=== PATIENT | female | born 1960 | race Hispanic/Latino ===

== ENCOUNTER 2018-04-15 14:07 | Emergency (ER) | payer OTHER ==
[2018-04-15] MEDS ORDERED: HYDROCODONE/APAP 10/325 TAB ONE (16:04)
--- NOTE | 2018-04-15 16:22 | ER ---
Nurse's Notes [facility] Name: Tamara Lazar Age: 57 yrs Sex: Female : 1960 Arrival Date: 04/15/2018 Time: 14:10 Bed 9 Private MD: Lincoln Durham R Diagnosis: Pain in left knee;Contusion of left knee Presentation: 04/15 14:35 Presenting complaint: Patient states: fell today onto her left knee. Care prior to sv arrival: None. 14:35 Acuity: LATISHA 4 sv 14:35 Method Of Arrival: Wheelchair sv 14:36 Transition of care: patient was not received from another setting of care. Onset of sv symptoms was April 15, 2018. 15:32 Risk Assessment: Do you want to hurt yourself or someone else? Patient reports no aa5 desire to harm self or others. Initial Sepsis Screen: Does the patient meet any 2 criteria? No. Patient's initial sepsis screen is negative. Does the patient have a suspected source of infection? No. Patient's initial sepsis screen is negative. Historical: - Allergies: 14:36 No Known Allergies; sv - PMHx: 14:36 Anxiety; CHF; COPD; Depression; Diabetes - NIDDM; Hypertension; Sleep Apnea; sv - PSHx: 14:36 Gastric Bypass; D \T\ C; sv - Ebola Screening: : No symptoms or risks identified at this time. Screenin:32 Abuse screen: Denies threats or abuse. Nutritional screening: No deficits noted. aa5 Tuberculosis screening: No symptoms or risk factors identified. Fall Risk Fall in past 12 months (25 points). Assessment: 15:32 General: Appears uncomfortable, Behavior is calm, cooperative. Pain: Complains of pain aa5 in left knee Pain currently is 8 out of 10 on a pain scale. Aggravated by increased activity, weight bearing. Neuro: Level of Consciousness is awake, alert, obeys commands, Oriented to person, place, time, situation. Cardiovascular: No deficits noted. Respiratory: Airway is patent Respiratory effort is even, unlabored, Respiratory pattern is regular, symmetrical. GI: No signs and/or symptoms were reported involving the gastrointestinal system. : No signs and/or symptoms were reported regarding the genitourinary system. EENT: No signs and/or symptoms were reported regarding the EENT system. Derm: Skin is pink, warm \T\ dry. Musculoskeletal: Range of motion: limited in left knee. 16:50 Reassessment: Knee immobilizer applied to left knee . aa5 Vital Signs: 14:36 BP 104 / 71; Pulse 62; Resp 20; Temp 98; Pulse Ox 100% ; Weight 113.4 kg; Height 5 ft. sv 4 in. (162.56 cm); Pain 8/10; 14:36 Body Mass Index 42.91 (113.40 kg, 162.56 cm) sv ED Course: 14:10 Patient arrived in ED. rg4 14:10 Lincoln Durham MD is Private Physician. rg4 14:36 Triage completed. sv 14:37 Arm band placed on. sv 15:30 Edward Donaldson NP is PHCP. pm1 15:30 Pedro Giang MD is Attending Physician. pm1 15:31 Knee Left 3 View XRAY In Process Unspecified. EDMS 15:32 Patient has correct armband on for positive identification. Placed in gown. Bed in low aa5 position. Call light in reach. Side rails up X 1. 15:36 Deborah Granda, RN is Primary Nurse. aa5 16:50 No provider procedures requiring assistance completed. Patient did not have IV access aa5 during this emergency room visit. Administered Medications: 15:55 Drug: [place] 10 mg-325 mg 1 tabs Route: PO; aa5 16:50 Follow up: Response: No adverse reaction; Pain is decreased aa5 Outcome: 16:22 Discharge ordered by MD. pm1 16:49 Discharged to home ambulatory, via wheelchair, with crutches, with family. aa5 16:49 Condition: stable 16:49 Discharge instructions given to patient, Instructed on discharge instructions, follow up and referral plans. Demonstrated understanding of instructions, follow-up care. 16:50 Patient left the ED. aa5 Signatures: Dispatcher [employer] Patricia Whitaker RN RN Deborah Gradna RN RN aa5 Edward Donaldson NP GEOCHEM[employer] LABORATORY TECHNICIAN pm1 Harriet Lund rg4
--- NOTE | 2018-04-15 16:22 | EDPHYS ---
Physician Documentation [facility] Name: Tamara Lazar Age: 57 yrs Sex: Female : 1960 Arrival Date: 04/15/2018 Time: 14:10 Bed 9 Private MD: Lincoln Durham R ED Physician Pedro Giang HPI: 04/15 16:00 This 57 yrs old Female presents to ER via Wheelchair with complaints of Fall pm1 Injury. 16:00 Details of fall: The patient fell from an upright position, while walking, and struck a pm1 concrete surface. Onset: The symptoms/episode began/occurred today. Associated injuries: The patient sustained left knee. Severity of symptoms: in the emergency department the symptoms are unchanged. The patient has not experienced similar symptoms in the past. The patient has not recently seen a physician. Patient was walking and fell on her left knee. Patient without head injury, headache, neck pain, or LOC. Historical: - Allergies: 14:36 No Known Allergies; sv - PMHx: 14:36 Anxiety; CHF; COPD; Depression; Diabetes - NIDDM; Hypertension; Sleep Apnea; sv - PSHx: 14:36 Gastric Bypass; D \T\ C; sv - Ebola Screening: : No symptoms or risks identified at this time. ROS: 16:00 Constitutional: Negative for fever, chills, and weight loss, Eyes: Negative for injury, pm1 pain, redness, and discharge, ENT: Negative for injury, pain, and discharge, Neck: Negative for injury, pain, and swelling, Cardiovascular: Negative for chest pain, palpitations, and edema, Respiratory: Negative for shortness of breath, cough, wheezing, and pleuritic chest pain, Abdomen/GI: Negative for abdominal pain, nausea, vomiting, diarrhea, and constipation, Back: Negative for injury and pain, : Negative for injury, bleeding, discharge, and swelling. 16:00 Skin: Negative for injury, rash, and discoloration, Neuro: Negative for headache, weakness, numbness, tingling, and seizure. 16:00 MS/extremity: Positive for pain, swelling, of the left knee, Negative for decreased range of motion, deformity, paresthesias, tingling. Exam: 16:00 Constitutional: This is a well developed, well nourished patient who is awake, alert, pm1 and in no acute distress. Head/Face: Normocephalic, atraumatic. Eyes: Pupils equal round and reactive to light, extra-ocular motions intact. Lids and lashes normal. Conjunctiva and sclera are non-icteric and not injected. Cornea within normal limits. Periorbital areas with no swelling, redness, or edema. ENT: Nares patent. No nasal discharge, no septal abnormalities noted. Tympanic membranes are normal and external auditory canals are clear. Oropharynx with no redness, swelling, or masses, exudates, or evidence of obstruction, uvula midline. Mucous membranes moist. Neck: Trachea midline, no thyromegaly or masses palpated, and no cervical lymphadenopathy. Supple, full range of motion without nuchal rigidity, or vertebral point tenderness. No Meningismus. Chest/axilla: Normal chest wall appearance and motion. Nontender with no deformity. No lesions are appreciated. Cardiovascular: Regular rate and rhythm with a normal S1 and S2. No gallops, murmurs, or rubs. Normal PMI, no JVD. No pulse deficits. Respiratory: Lungs have equal breath sounds bilaterally, clear to auscultation and percussion. No rales, rhonchi or wheezes noted. No increased work of breathing, no retractions or nasal flaring. Abdomen/GI: Soft, non-tender, with normal bowel sounds. No distension or tympany. No guarding or rebound. No evidence of tenderness throughout. Back: No spinal tenderness. No costovertebral tenderness. Full range of motion. Skin: Warm, dry with normal turgor. Normal color with no rashes, no lesions, and no evidence of cellulitis. 16:00 Musculoskeletal/extremity: Extremities: grossly normal except: noted in the left knee: pain, swelling, There is no evidence of decreased ROM. 16:00 Neuro: Orientation: is normal, Motor: is normal, moves all fours. Vital Signs: 14:36 BP 104 / 71; Pulse 62; Resp 20; Temp 98; Pulse Ox 100% ; Weight 113.4 kg; Height 5 ft. sv 4 in. (162.56 cm); Pain 8/10; 14:36 Body Mass Index 42.91 (113.40 kg, 162.56 cm) sv Procedures: 16:00 Splinting: Splint applied to left knee using knee immobilizer, applied by nurse. pm1 Examined by me, post splint application: neurovascular intact, 2+ distal pulses palpable, brisk capillary refill noted, Patient tolerated well. MDM: 15:30 Patient medically screened. pm1 16:19 Data reviewed: vital signs. Data interpreted: Pulse oximetry: on room air is 100 %. pm1 Interpretation: normal. Awaiting: X-ray results, Radiologist interpretation. Patient does not want to wait for official read. 16:19 Counseling: I had a detailed discussion with the patient and/or guardian regarding: the pm1 historical points, exam findings, and any diagnostic results supporting the discharge/admit diagnosis, radiology results, the need for outpatient follow up, to return to the emergency department if symptoms worsen or persist or if there are any questions or concerns that arise at home. 04/15 14:37 Order name: Knee Left 3 View XRAY; Complete Time: 20:22 sv 04/15 15:44 Order name: Knee Immobilizer; Complete Time: 16:50 pm1 04/15 15:44 Order name: Crutches; Complete Time: 16:50 pm1 Administered Medications: 15:55 Drug: [facility] 10 mg-325 mg 1 tabs Route: PO; aa5 16:50 Follow up: Response: No adverse reaction; Pain is decreased aa5 Disposition: 04/15/18 16:22 Discharged to Home. Impression: Pain in left knee, Contusion of left knee. - Condition is Stable. - Discharge Instructions: Contusion, Crutch Use, Knee Immobilizer, Knee Pain. - Medication Reconciliation Form, Thank You Letter, Antibiotic Education, Prescription Opioid Use form. - Follow up: Emergency Department; When: As needed; Reason: Worsening of condition. Follow up: Private Physician; When: 2 - 3 days; Reason: Recheck today's complaints, Continuance of care, Re-evaluation by your physician. - Problem is new. - Symptoms have improved. Addendum: 04/18/2018 05:34 Co-signature as Attending Physician, Pedro Giang MD I agree with the assessment and c julien plan of care. Signatures: Dispatcher [employer] Patricia Whitaker RN RN sv Anderson, Corey, MD MD cha Calderon, Audri, RN RN aa5 Edward Donaldson NP [employer] SUPERVISOR pm1 Corrections: (The following items were deleted from the chart) 04/15 16:50 16:22 04/15/2018 16:22 Discharged to Home. Impression: Pain in left knee; Contusion of aa5 left knee. Condition is Stable. Forms are Medication Reconciliation Form, Thank You Letter, Antibiotic Education, Prescription Opioid Use. Follow up: Emergency Department; When: As needed; Reason: Worsening of condition. Follow up: Private Physician; When: 2 - 3 days; Reason: Recheck today's complaints, Continuance of care, Re-evaluation by your physician. Problem is new. Symptoms have improved. pm1
--- NOTE | 2018-04-15 17:19 | RAD REPORT ---
EXAM DESCRIPTION: RAD - Knee Left 3 View - 04/15/2018 3:29 pm CLINICAL HISTORY: Left knee pain status post injury FINDINGS: A small to moderate joint effusion is present. The evaluation of the medial tibial plateau is limited as the knee was not completely extended on fro ntal and oblique views. No gross fracture or dislocation seen. Bones are osteoporotic. If patient continues have symptoms to suggest an occult fracture MRI would be recommended
[2018-04-15 17:22] VITALS: BP 104/71; TEMP 98; O2SAT 100
== END 2018-04-15 16:50 | disposition home or self-care (01) ==
LOC: ER 14:07
DX: S80.02XA Contusion of left knee, initial encounter (principal); W01.0XXA Fall on same level from slipping, tripping and stumbling without subsequent striking against object, initial encounter; Y93.01 Activity, walking, marching and hiking; F41.9 Anxiety disorder, unspecified; I11.0 Hypertensive heart disease with heart failure; I50.9 Heart failure, unspecified; J44.9 Chronic obstructive pulmonary disease, unspecified; F32.9 Major depressive disorder, single episode, unspecified; E11.9 Type 2 diabetes mellitus without complications
CPT/HCPCS: 99283

== ENCOUNTER 2018-05-12 09:14 | Observation (INO) | payer OTHER ==
--- OUTSIDE RECORDS SUMMARY | 2018-05-12 09:17 | XMS REPORT ---
:1960 Author Organization [employer] Care Team Providers Name Role Phone Lebron Grayson Provider Role Unavailable Allergies, Adverse Reactions, Alerts Substance Reaction Event Type N.K.D.A. Info Not Available Non Drug Allergy Problems Problem Type Condition Code Onset Dates Condition Status Assessment Primary osteoarthritis of knees, M17.0 Active bilateral Assessment Contusion of left knee, initial S80.02XA Active encounter Assessment Morbid (severe) obesity due to E66.01 Active excess calories Problem Morbid (severe) obesity due to E66.01 Active excess calories Problem Pedal edema R60.0 Active Problem Primary osteoarthritis of knees, M17.0 Active bilateral Assessment Pain, joint, knee, left M25.562 Active Problem Primary osteoarthritis of left M17.12 Active knee Problem Primary osteoarthritis of right M17.11 Active knee Medications Medication Code System Code Instructions Start End Date Status Dosage Date Metformin HCl [facility] 74207-401 Active not defined 8-01 Furosemide ND 0 Active not defined Lisinopril [facility] 84954-300 Active not defined 1-01 Acetaminophen-Cod [facility] 76840-073 Active not defined eine #4 0-01 Citalopram [facility] 94173-937 Active not defined Hydrobromide 1-01 Glimepiride [facility] 86890-641 Active not defined 6-01 Results No Known Results Summary Purpose [employer] Submission
[2018-05-12] MEDS ORDERED: GLUCAGON 1 MG/VIAL IM PRN (10:14)
[2018-05-12] MEDS ORDERED: PROMETHAZINE 25 MG/ML VIAL IV PRN (10:14)
[2018-05-12] MEDS ORDERED: D50W 25 GM/50 ML SYRINGE IV PRN (10:14)
[2018-05-12 10:40] LABS: Urine Appearance CLEAR; Urine Bilirubin NEGATIVE (NEG); Urine Blood 3+ (NEG); Urine Color DK YELLOW; Urine Glucose NEGATIVE (NEG); Urine Protein TRACE (NEG); Urine Specific Gravity 1.025 (1.005-1.030); Urine Urobilinogen 0.2 mg/dL (0.2-1.0); Urine pH 5.5 (5.0-7.0)
[2018-05-12 10:40] LABS: Absolute Monocytes 0.7 K/uL (0.1-1.3); Absolute Neutrophil 10.3 K/uL (1.8-8.0); Basophils % 0.3 % (0-1.3); Eosinophils % 0.3 % (0-4.4); Hematocrit 44.4 % (36.0-45.0); MPV 8.4 fL (7.6-11.3); Monocytes % 5.9 % (3.3-12.3)
[2018-05-12 10:46] LABS: Albumin 3.1 g/dL (3.4-5.0); Bilirubin Total 0.6 mg/dL (0.2-1.0); Potassium 3.5 mmol/L (3.5-5.1); Protein, Total 7.2 g/dL (6.4-8.2)
[2018-05-12 11:07] LABS: Urine Microscopic Reflex ORDER UMIC
[2018-05-12 11:09] VITALS: BMI 43.0
[2018-05-12 11:18] LABS: Urine Bacteria 20-50 /HPF (<20); Urine Culture Reflex Order NOT NEEDED; Urine Mucus MOD /HPF (NONE SEEN); Urine RBC <5 /HPF (NONE SEEN)
[2018-05-12] MEDS: NACHLORIDE 0.45% 1,000 ML IV SCH ×3 (11:23→20:17)
[2018-05-12] MEDS: INSULIN -REGULAR HUMAN 50 UNIT/0.5 ML ML SQ SCH ×2 (12:00→17:15)
[2018-05-12 12:04] LABS: Platelet Estimate ADEQ
[2018-05-12 12:05] LABS: Blood Morphology Comment NOT SEEN (NOT SEEN); Platelets, Giant FEW
--- NOTE | 2018-05-12 14:13 | RAD REPORT ---
EXAM DESCRIPTION: CT - Abdomen Pelvis W Contrast - 05/12/2018 1:59 pm CLINICAL HISTORY: Abdominal pain. COMPARISON: 2014 TECHNIQUE: Computed axial tomography of the abdomen and pelvis was obtained. 100 cc Isovue-300 is ad ministered intravenously. Oral contrast was given. All CT scans are performed using dose optimization technique as appropriate and may include automated exposure control or mA/KV adjustment according to patient size. FINDINGS: Hepatic hemangioma is unchanged. Postsurgical changes of a gastric bypass The Spleen, pancreas, adrenals and kidneys appear unremarkable. The appendix is normal caliber. There is no evidence of diverticulitis The wall of portions of the rectosigmoid colon and cecum appear mildly thickened. IMPRESSION: Mild colitis suspected
[2018-05-12] MEDS ORDERED: MORPHINE 4 MG/ML SYR IV PRN (15:51)
[2018-05-12] MEDS: METRONIDAZOLE 500mg IVPB 500 MG/100 ML BAG IV SCH (17:50)
[2018-05-12] MEDS: CIPROFLOXACIN 400mg IV 400 MG/200 ML BAG IV SCH (20:16)
[2018-05-13] MEDS: NACHLORIDE 0.45% 1,000 ML IV SCH ×5 (00:20→21:50)
[2018-05-13] MEDS: METRONIDAZOLE 500mg IVPB 500 MG/100 ML BAG IV SCH ×4 (01:38→18:59)
[2018-05-13] MEDS: INSULIN -REGULAR HUMAN 50 UNIT/0.5 ML ML SQ SCH ×4 (06:00→18:00)
[2018-05-13] MEDS: CITALOPRAM 10 MG TABLET PO SCH (10:31)
[2018-05-13] MEDS: CIPROFLOXACIN 400mg IV 400 MG/200 ML BAG IV SCH ×2 (10:33→21:50)
--- NOTE | 2018-05-13 13:59 | HP ---
Date of Admission: 05/12/2018 Chief Complaint: Fever, diarrhea, abdominal pain, vomiting. History Of Present Illness: A 57-year-old female was brought to the office with 3-4 day history of f ever, abdominal pain, nausea, vomiting, and diarrhea. The patient was examined in the office. She w as febrile with [id number] pain. It was not clear whether she had infective gastroenteritis or other abdominal pathology. The patient was admitted for observation. The patient denied any history of having any blood in the stools. The patient denied any history of vomiting up blood. No history of syncope or seizures. Past Medical History: Positive for hypertension, COPD, history of congestive heart failure, depressi on and anxiety. Past Surgical History: Positive for gastric bypass, tummy tuck, abdominal lipoplasty. Family History: Noncontributory. Personal History: No known drug allergies. Home Medicines: Please refer to the chart. Review of Systems: The patient denied any history of chest pain or shortness of breath. Physical Examination: General: Revealed a 57-year-old female in moderate pain. Vital Signs: Temperature 100.5 in the office. HEENT: No icterus. Neck: Supple. JVD negative. Chest: Clear. Heart: Mild tachycardia. Abdomen: Diffusely tender. Bowel sounds present. Extremities: No edema. Laboratory Data: White count 12. Chem profile; normal lipase, lactic acid, and glucose. Assessment: 1.Abdominal pain. 2.Gastroenteritis. 3.History of chronic obstructive pulmonary disease and congestive heart failure. 4.History of anxiety and depression. 5.History of gastric bypass surgery. Plan: IV fluids. Stool cultures as done. CAT scan did not show any evidence of obstruction, instea d showed colitis. The patient is started on IV antibiotics, and she will be followed up. STEPHANIE/ROGERS Voice ID: [id number]
[2018-05-13] MEDS ORDERED: ACETAMINOPHEN 500 MG TAB PO PRN (15:48)
[2018-05-14] MEDS: METRONIDAZOLE 500mg IVPB 500 MG/100 ML BAG IV SCH ×4 (00:51→17:49)
[2018-05-14] MEDS: INSULIN -REGULAR HUMAN 50 UNIT/0.5 ML ML SQ SCH ×4 (06:00→18:00)
[2018-05-14] MEDS: CITALOPRAM 10 MG TABLET PO SCH (09:05)
[2018-05-14] MEDS: CIPROFLOXACIN 400mg IV 400 MG/200 ML BAG IV SCH (09:05)
[2018-05-14 09:59] VITALS: O2SAT 96
[2018-05-14] MEDS ORDERED: SUCRALFATE 1 GM TABLET PO SCH (16:30)
[2018-05-14] MEDS: NACHLORIDE 0.45% 1,000 ML IV SCH (17:00)
--- NOTE | 2018-05-14 17:18 | PN ---
The patient is afebrile and she is feeling better, but her diarrhea still continues. There is no blo od in the stools. Stool cultures are negative for Salmonella, Campylobacter as well as C. difficile toxin, so very likely the patient has nonspecific colitis. The patient in view of her continued diar carmelita will be given supplemental IV fluids along with control of diet and she will be re-examined prachi martinez. STEPHANIE/ENDERL Voice ID: [id number] Report ID: [id number]
[2018-05-14 19:05] VITALS: BP 135/86; TEMP 99.6
== END 2018-05-14 20:10 | disposition home or self-care (01) ==
LOC: ERHOLD 09:14 → 4TH 09:27
PROVIDERS: ADMIT Internal Medicine; ATTEND Internal Medicine
DX: K52.9 Noninfective gastroenteritis and colitis, unspecified (principal); I10 Essential (primary) hypertension; F41.8 Other specified anxiety disorders; Z98.84 Bariatric surgery status; J44.9 Chronic obstructive pulmonary disease, unspecified
CPT/HCPCS: 87088; 87045; 85025; 87086; 36415; 82962 ×10; 87046; 83605; 87493; 83690; 80053; 74177; Q9967; J0744 ×4; G0379; G0378; 81003; 81015

== ENCOUNTER 2018-07-05 16:19 | Observation (INO) | payer OTHER ==
--- OUTSIDE RECORDS SUMMARY | 2018-07-05 17:02 | XMS REPORT ---
:1960 Author Organization [employer] Care Team Providers Name Role Phone Lebron Grayson Provider Role Unavailable Allergies, Adverse Reactions, Alerts Substance Reaction Event Type N.K.D.A. Info Not Available Non Drug Allergy Problems Problem Type Condition Code Onset Dates Condition Status Assessment Primary osteoarthritis of right M17.11 Active knee Assessment Primary osteoarthritis of left knee M17.12 Active Problem Primary osteoarthritis of knees, M17.0 Active bilateral Problem Morbid (severe) obesity due to E66.01 Active excess calories Problem Pain, joint, knee, left M25.562 Active Problem Primary osteoarthritis of right M17.11 Active knee Problem Pedal edema R60.0 Active Problem Primary osteoarthritis of left knee M17.12 Active Medications Medication Code System Code Instructions Start End Date Status Dosage Date Citalopram [facility] 81885-433 Active not defined Hydrobromide 1-01 Metformin HCl [facility] 07090-261 Active not defined 8-01 Acetaminophen-Cod [facility] 24826-266 Active not defined eine #4 0-01 Lisinopril [facility] 81702-778 Active not defined 1-01 Furosemide ND 0 Active not defined Glimepiride [facility] 77957-880 Active not defined 6-01 Results No Known Results Summary Purpose [employer] Submission
--- OUTSIDE RECORDS SUMMARY | 2018-07-05 17:02 | XMS REPORT ---
:1960 [facility] Address [address] [place] [address] Care Team Providers Name Role Phone Unavailable Unavailable Unavailable Problems This patient has no known problems. Allergies, Adverse Reactions, Alerts This patient has no known allergies or adverse reactions. Medications This patient has no known medications.
--- OUTSIDE RECORDS SUMMARY | 2018-07-05 17:02 | XMS REPORT ---
[...] End Date Status Dosage Date Metformin HCl [facility] 64841-314 Active not defined 8-01 Furosemide ND 0 Active not defined Lisinopril [facility] 06105-667 Active not defined 1-01 Acetaminophen-Cod [facility] 66815-183 Active not defined eine #4 0-01 Citalopram [facility] 96213-535 Active not defined Hydrobromide 1-01 Glimepiride [facility] 26697-448 Active not defined 6-01 Results No Known Results Summary Purpose [employer] Submission
--- OUTSIDE RECORDS SUMMARY | 2018-07-05 17:02 | XMS REPORT ---
[...] Instructions Start End Date Status Dosage Date Acetaminophen-Cod [facility] 89813-926 Active not defined eine #4 0-01 Citalopram [facility] 14697-368 Active not defined Hydrobromide 1-01 Lisinopril [facility] 17838-905 Active not defined 1-01 Glimepiride [facility] 11653-141 Active not defined 6-01 Furosemide ND 0 Active not defined Metformin HCl [facility] 61503-435 Active not defined 8-01 Results No Known Results Summary Purpose [employer] Submission
--- OUTSIDE RECORDS SUMMARY | 2018-07-05 17:02 | XMS REPORT ---
[...] Instructions Start End Date Status Dosage Date Lisinopril [facility] 27368-594 Active not defined 1-01 Citalopram [facility] 04435-140 Active not defined Hydrobromide 1-01 Metformin HCl [facility] 62415-227 Active not defined 8-01 Furosemide ND 0 Active not defined Acetaminophen-Cod [facility] 36655-560 Active not defined eine #4 0-01 Glimepiride [facility] 62439-172 Active not defined 6-01 Results No Known Results Summary Purpose [employer] Submission
[2018-07-05 17:37] VITALS: BMI 42.9
[2018-07-05 17:42] LABS: Absolute Lymphocytes (CBC) 1.6 K/uL (0.7-4.9); Absolute Monocytes 0.6 K/uL (0.1-1.3); Absolute Neutrophil 6.6 K/uL (1.8-8.0); Basophils % 0.8 % (0-1.3); Eosinophils % 2.2 % (0-4.4); Hematocrit 45.1 % (36.0-45.0); MPV 8.5 fL (7.6-11.3); Monocytes % 6.9 % (3.3-12.3); RBC Red Blood Cell Count 5.16 M/uL (3.86-4.86)
[2018-07-05] MEDS: NACHLORIDE 0.45% 1,000 ML IV SCH (17:50)
[2018-07-05 18:04] LABS: Albumin 3.2 g/dL (3.4-5.0); Bilirubin Total 0.4 mg/dL (0.2-1.0); Potassium 3.6 mmol/L (3.5-5.1); Protein, Total 7.2 g/dL (6.4-8.2)
[2018-07-05] MEDS ORDERED: ACETAMINOPHEN 500 MG TAB PO PRN (18:19)
[2018-07-06] MEDS: NACHLORIDE 0.45% 1,000 ML IV SCH ×2 (02:30→07:20)
[2018-07-06] MEDS ORDERED: GLUCAGON 1 MG/VIAL IM PRN (07:11)
[2018-07-06] MEDS ORDERED: D50W 25 GM/50 ML SYRINGE IV PRN (07:11)
--- NOTE | 2018-07-06 08:15 | RAD REPORT ---
EXAM DESCRIPTION: CT - Abdomen Pelvis W Contrast - 07/05/2018 10:24 pm CLINICAL HISTORY: Abdominal pain. COMPARISON: April 2018 TECHNIQUE: Computed axial tomography of the abdomen and pelvis was obtained. 100 cc Isovue-300 is ad ministered intravenously. Oral contrast was given. All CT scans are performed using dose optimization technique as appropriate and may include automated exposure control or mA/KV adjustment according to patient size. FINDINGS: Hepatic hemangioma unchanged Gastric bypass Spleen, pancreas, adrenals and kidneys appear unremarkable. Wall of the sigmoid colon is mildly thickened. There is no evidence of diverticulitis Normal appendix IMPRESSION: Mild sigmoid colitis
[2018-07-06] MEDS ORDERED: CITALOPRAM 10 MG TABLET PO SCH (09:00)
[2018-07-06 09:27] VITALS: O2SAT 95
[2018-07-06] MEDS ORDERED: INSULIN -REGULAR HUMAN 50 UNIT/0.5 ML ML SQ SCH (12:00)
[2018-07-06 12:17] VITALS: BP 109/62; TEMP 98.2
--- NOTE | 2018-07-07 00:19 | HP ---
Date of Admission: 07/05/2018 Chief Complaint: Low blood pressure, gastroenteritis. History Of Present Illness: A 57-year-old female was brought to the office with history of diarrhea and vomiting. Her blood pressure was between 80 and 90 systolic. In view of this, the patient was a dmitted for observation for IV fluid administration and associated issues. There is no history of vomiting of blood. No history of tarry stools. Past Medical History: The patient is known to have type 2 diabetes, anxiety, and depression. Family History: Noncontributory. Personal History: Nonsmoker. Allergies: NONE. Review of Systems: No chest pain or shortness of breath. Physical Examination: General: Revealed a 57-year-old female. Vital Signs: Blood pressure at the time of admission was 89/50, pulse of 90, temperature normal. HEENT: Negative. Neck: Supple. JVD negative. Chest: Clear. Heart: Regular. Abdomen: Diffusely tender. Bowel sounds present. Extremities: No edema. Laboratory Data: White count normal. CAT scan, nonspecific changes in the colon. Chem profile norm al. Assessment: 1.Probable viral gastroenteritis. 2.Dehydration. 3.Hypotension from above. 4.Chronic anxiety and depression. Plan: The patient received IV fluids. Her blood pressure has come up. She is tolerating a liquid d iet. In view of this, she will be discharged and followed up in the office. STEPHANIE/ROGERS Voice ID: [id number]
== END 2018-07-06 16:32 | disposition home or self-care (01) ==
LOC: 4TH 16:59
PROVIDERS: ADMIT Internal Medicine; ATTEND Internal Medicine
DX: R19.7 Diarrhea, unspecified (principal); R11.10 Vomiting, unspecified; E86.0 Dehydration; I95.9 Hypotension, unspecified; E11.9 Type 2 diabetes mellitus without complications; F41.8 Other specified anxiety disorders
CPT/HCPCS: 96365 ×2; 96367 ×2; 87045; 85025; 36415; 82962 ×2; 87046; 87493; 80053; 74177; Q9967; G0379; G0378

== ENCOUNTER 2018-09-21 07:59 | Day surgery (SDC) | payer OTHER ==
--- NOTE | 2018-09-20 11:58 | RAD REPORT ---
EXAM DESCRIPTION: RAD - Chest Pa And Lat (2 Views) - 09/20/2018 11:54 am CLINICAL HISTORY: pre op Chest pain. COMPARISON: Chest Pa And Lat (2 Views) dated 03/19/2016; CHEST SINGLE VIEW dated 06/16/2013; CHEST SIN GLE VIEW dated 05/31/2013; CHEST SINGLE VIEW dated 11/24/2012 FINDINGS: The lungs are clear. The heart is upper limit of normal in size. No displaced fractures.
[2018-09-20 12:01] LABS: Absolute Lymphocytes (CBC) 1.6 K/uL (0.7-4.9); Basophils % 1.3 % (0-1.3); Hematocrit 42.6 % (36.0-45.0); Lymphocytes % 30.4 % (15.3-44.8); MPV 8.8 fL (7.6-11.3); RBC Red Blood Cell Count 4.76 M/uL (3.86-4.86)
[2018-09-20 12:21] LABS: Potassium 3.9 mmol/L (3.5-5.1)
--- OUTSIDE RECORDS SUMMARY | 2018-09-21 08:03 | XMS REPORT ---
[...] Start End Date Status Dosage Date Citalopram [facility] 96696-264 Active not defined Hydrobromide 1-01 Metformin HCl [facility] 25608-477 Active not defined 8-01 Acetaminophen-Cod [facility] 89531-927 Active not defined eine #4 0-01 Lisinopril [facility] 72980-266 Active not defined 1-01 Furosemide ND 0 Active not defined Glimepiride [facility] 00119-678 Active not defined 6-01 Results No Known Results Summary Purpose [employer] Submission
--- OUTSIDE RECORDS SUMMARY | 2018-09-21 08:03 | XMS REPORT ---
[...] Start End Date Status Dosage Date Acetaminophen-Cod [facility] 35051-238 Active not defined eine #4 0-01 Citalopram [facility] 57808-835 Active not defined Hydrobromide 1-01 Lisinopril [facility] 85871-535 Active not defined 1-01 Glimepiride [facility] 14567-226 Active not defined 6-01 Furosemide ND 0 Active not defined Metformin HCl [facility] 36926-990 Active not defined 8-01 Results No Known Results Summary Purpose [employer] Submission
--- OUTSIDE RECORDS SUMMARY | 2018-09-21 08:03 | XMS REPORT ---
[...] Start End Date Status Dosage Date Lisinopril [facility] 24211-485 Active not defined 1-01 Citalopram [facility] 53470-864 Active not defined Hydrobromide 1-01 Metformin HCl [facility] 31661-258 Active not defined 8-01 Furosemide ND 0 Active not defined Acetaminophen-Cod [facility] 23080-289 Active not defined eine #4 0-01 Glimepiride [facility] 50982-769 Active not defined 6-01 Results No Known Results Summary Purpose eClinicalWorks Submission
--- OUTSIDE RECORDS SUMMARY | 2018-09-21 08:03 | XMS REPORT ---
:1960 [facility] [address] [place] [address] Care Team Providers Name Role Phone Unavailable Unavailable Unavailable Problems This patient has no known problems. Allergies, Adverse Reactions, Alerts This patient has no known allergies or adverse reactions. Medications This patient has no known medications.
--- OUTSIDE RECORDS SUMMARY | 2018-09-21 08:03 | XMS REPORT ---
[...] End Date Status Dosage Date Metformin HCl [facility] 17406-111 Active not defined 8-01 Furosemide ND 0 Active not defined Lisinopril [facility] 75389-833 Active not defined 1-01 Acetaminophen-Cod [facility] 55188-421 Active not defined eine #4 0-01 Citalopram [facility] 31271-565 Active not defined Hydrobromide 1-01 Glimepiride [facility] 60772-795 Active not defined 6-01 Results No Known Results Summary Purpose e[employer]cityguru Submission
[2018-09-21] MEDS ORDERED: NA CHLORIDE 0.9% 1,000 ML ONE (08:30)
[2018-09-21] MEDS ORDERED: CEFAZOLIN/SWI 1gm 1 GM/10 ML SYR ONE (08:42)
[2018-09-21] MEDS ORDERED: MIDAZOLAM HCL 2 MG/2 ML INJ ONE ×2 (09:05→09:27)
[2018-09-21] MEDS ORDERED: LIDOCAINE 2% MPF 5 ML VIAL ONE ×2 (09:05→09:28)
[2018-09-21] MEDS ORDERED: PROPOFOL 200 MG/20 ML VIAL IV ONE ×2 (09:05→09:26)
[2018-09-21] MEDS ORDERED: FENTANYL CITR 100 MCG/2 ML ONE (09:05)
[2018-09-21] MEDS ORDERED: ROCURONIUM 50 MG/5 ML VIAL IV ONE ×2 (09:11→09:32)
[2018-09-21] MEDS ORDERED: GLYCOPYRROLATE 0.2 MG/ML SYR ONE ×2 (09:28→10:36)
[2018-09-21] MEDS ORDERED: FENTANYL CITR 250 MCG/5 ML ONE (09:29)
[2018-09-21] MEDS ORDERED: NEOSTIGMINE 1 MG/ML -10 ML VIAL ONE (09:32)
[2018-09-21] MEDS ORDERED: ONDANSETRON 4 MG/2 ML VIAL ONE (09:32)
[2018-09-21] MEDS ORDERED: EPHEDRINE SULF 50 MG/ML VIAL ONE (10:24)
[2018-09-21] MEDS ORDERED: Ringers Lactate 1,000 ML IV ONE ×2 (10:27→11:04)
[2018-09-21] MEDS ORDERED: CEFAZOLIN SODIUM 1 GM/VIAL ONE (10:30)
--- NOTE | 2018-09-21 10:42 | EKG ---
Test Date: 2018-09-20 Test Time: 11:38:17 Sourcing Specialist: DAREN MEASUREMENT RESULTS: Intervals: Rate: 75 AK: 170 QRSD: 84 QT: 400 QTc: 446 [place]: P: 50 AK: 170 QRS: 38 T: 47 INTERPRETIVE STATEMENTS: Sinus rhythm with sinus arrhythmia with occasional premature ventricular complexes Cannot rule out Anterior infarct, age undetermined Abnormal ECG Compared to ECG 06/16/2013 17:27:02 Ventricular premature complex(es) now present Myocardial infarct finding still present Electronically Signed On 09-21-18 10:41:24 CDT by Teddy Casas
[2018-09-21] MEDS: MEPERIDINE HCL 50 MG/ML AMP ONE ×3 (11:30→11:40)
--- NOTE | 2018-09-21 11:35 | P.BOP ---
Preoperative diagnosis: LLQ abd pain, RLQ abd pain, epiploic appendagitis Postoperative diagnosis: same plus appendicitis, intrabdominal adhesions Primary procedure: 1. Diagnostic laparoscopy, 2. laparoscopic appendectomy Secondary procedure: 3. Lap EARL, 4. laparoscopic resection of epiploic appendagitis Machine Clerical Verifier: francisco owens ([place]) Estimated blood loss: <10cc Specimen: appendix, epiploic appendagitis with with lesion Findings: see dictation Anesthesia: General Complications: None Transferred to: Recovery Room Condition: Good
[2018-09-21] MEDS ORDERED: HYDROMORPHONE HCL 1 MG/ML INJ ONE (12:04)
[2018-09-21] MEDS ORDERED: CODEINE 30MG/APAP 300MG TAB ONE (13:11)
[2018-09-21 14:01] VITALS: TEMP 97.5
[2018-09-21 14:06] VITALS: BP 113/65; O2SAT 99
--- NOTE | 2018-09-22 19:36 | OP ---
Date of Procedure: 09/21/2018 Surgeon: Iraj Park MD Transmitter Engineer In Charge: Aline Sheikh. Preoperative Diagnoses: 1.Left lower quadrant abdominal pain and right lower quadrant abdominal pain. 2.Epiploic appendagitis. Postoperative Diagnoses: 1.Left lower quadrant abdominal pain and right lower quadrant abdominal pain. 2.Epiploic appendagitis. 3.Acute appendicitis. 4.Intraabdominal adhesions. Primary Procedures: 1.Diagnostic laparoscopy. 2.Laparoscopic appendectomy. 3.Extensive laparoscopic lysis of adhesions. 4.Laparoscopic resection of epiploic appendagitis. Findings: The patient has extensity intraabdominal adhesions. Those are clear we have to clean that up with the help of LigaSure, but there are a few interesting points. Over the area of the liver ev en though the CAT scan shows that there is some masses or hemangiomas through the laparoscope we took so many pictures it looked like a mass extending from the left side of the liver that goes to the ot her side of the falciform ligament and going to the right side of the liver. It looks large, it does not look soft, it looks rubbery, and it looks solid. Because the CAT scan shows some evidence of ma y be hemangiomas, I did not put my knee incision in that area, but I recommend this patient to go to a liver surgeon and once again verify the findings of that. We provided plenty of pictures of that. For the area of the epiploic appendagitis indeed she has that on the left side, very close to the si gmoid. I do not see any mass in that area. There is some inflammation over that region. Colonoscop y needs to be done eventually to see if there is any lesions intraluminal since I do not see them out side. That sample was removed and sent to the specimen. On the area of the appendix, interestingly enough, the distal appendix was also inflamed and not only that the equivalent of epiploic appendagit is in an area of the appendix which is that mesenteric area looks also ischemic the same way the epip loic appendagitis looks like. It is hard for me to say the etiology of that. There is a picture meenu t state this ischemic just lesions in that area. So, we cannot rule out appendicitis as the cause of that so we proceeded to remove the appendix. Anesthesia: General plus local. Indications: This is the case of a 58-year-old patient, who comes to us with chronic abdominal pain. She has been like that on and off. Multiple studies and multiple evaluation by the primary doctors , ER, and enterprise systems manager. The last of the scan shows the patient may have an epiploic appendagit is in the left side, but once again her pain is not only there, although it is there but it is not on ly there, also goes every now and then to the right lower quadrant. She has the options and she was explained the options of observation and that an epiploic appendagitis since some times that just res olves, but she does not want that she wants to have the camera on and she wants that to be checked. So, we explained to her the chance for a diagnostic laparoscopy and any other indicated procedures. She also expressed her concern about removing the appendix at the same time, since she has some times pain in the right side. I explained to her that we are going to take a look at that area. If we se e any pathology then we will proceed accordingly. Because she has certain risks, we fully explained to her which include, but not limited to infection, bleeding, damage to adjacent structures, anesthes ia complication, negative exploration, CT, and even . She also understands this may not relieve any symptoms and she might need more than one surgical intervention. She understood and signed a co nsent. Description Of Procedure: The patient was brought to the operating room, placed in supine position. Anesthesia was induced without complication. Abdominal area was prepped and draped in a sterile fas hion. The patient has a previous panniculectomy, which we have normal belly button. So, we have to create an incision in the midline, find the fascia underneath, open the fascia under direct visualiza tion, put Vicryl #1 inside of the fascia. Jeffrey trocar was carefully introduced. No bleeding was o btained. Immediately, we noticed scar tissue in the left and right side, but we did not stop there b ecause though she may have scar tissue that does not necessarily mean the cause of her pain. So, we keep looking diagnostic laparoscopy. First of all, the appendix looks suspicious. Distal half of th e appendix looks inflamed, asymmetrical in shape and color, and then on the mesoappendix just the fat around the appendix we noticed a black lesion just almost like the patient has epiploic appendagitis . The same way we looked at the sigmoid colon and we had the same thing in that area. So, for the a key of the sigmoid we removed that epiploic appendagitis and from the area of the appendix since it i s right at the base at the distal side of the appendix attached partially to the appendix wall, we de cided to remove the appendix since it is safer at this moment. At the area of the upper abdomen, we noticed the patient to have a liver mass. We checked the CAT scan result, we know the patient has la rge hemangiomas, this looks more solid to me. I took several pictures of that. I am not going to ta ke a biopsy on that because if that is a large hemangioma we may have exsanguination here so I took t he pictures to eventually ask her to consult that with her liver expert to see of anything else has t o be done in that area. Stomach looks soft and compressible and the rest of the abdomen I do not see any colonic mass or intestinal masses. So, the appendix was removed using the same technique, which consists of creating a window in the base of the appendix, transected that with an Endo PAUL 45 mm, a nd the mesoappendix with an Endo PAUL 45 mm 2.5. Before that, I have to mention patient has multiple scar tissue in the area of the appendix and the area of the sigmoid colon. Once again, the etiology of that is unknown. A colonoscopy should be verified to make sure there is no lesions intraluminal. In order for me to do this surgery, I have to put a LigaSure and proceeded to the lysis of adhesions . Once we have those released, then we proceeded to carefully remove the appendix in the same way I just described. Then, the area of the sigmoid colon we have this epiploic appendagitis with that camille ck lesion on it, so we removed that using once again LigaSure. The area of the lysis of adhesions wa s intact, appendectomy area is intact, the area of the epiploic appendagitis removal was intact, and plenty of pictures of the area of the liver for her to bring to her liver specialist. At that moment , I proceeded to remove the trocars under direct vision. Deflated the pneumoperitoneum. Closed the fascia with #1 Vicryl. Irrigated the subcu tissue, closed that with 3-0 chromic and the skin was cara roximated. Sponge count and instrument counts were correct. The patient tolerated the procedure well. The patient was sent to r ecovery in stable condition. JOAQUIN/ROGERS Voice ID: [id number] Report ID: [id number]
--- NOTE | 2018-09-22 19:36 | DS ---
Date of Discharge: 09/21/2018 Diagnoses: Left lower quadrant pain, abdominal pain, right lower quadrant pain, epiploic appendagiti s, acute appendicitis, and intraabdominal adhesions. Procedure: Diagnostic laparoscopy, laparoscopic appendectomy, laparoscopic lysis of adhesions, and l aparoscopic resection of epiploic appendagitis. Disposition: Home. Activity: As tolerated. No heavy lifting. Followup: Follow up in my office in 1 week. Call for appointment at [phone]. Keep area dry for 48 hours, then may shower. Medications: See orders. JOAQUIN/MODL Voice ID: [id number] Report ID: [id number]
== END 2018-09-21 13:53 | disposition home or self-care (01) ==
LOC: OR 07:59
PROVIDERS: ATTEND Surgery
PROC: 0DTJ4ZZ Resection of Appendix, Percutaneous Endoscopic Approach (ICD-10-PCS; principal; 2018-09-21 10:00)
DX: K35.80 Unspecified acute appendicitis (principal); K63.89 Other specified diseases of intestine; K66.0 Peritoneal adhesions (postprocedural) (postinfection); K76.89 Other specified diseases of liver; E11.9 Type 2 diabetes mellitus without complications; I10 Essential (primary) hypertension; J44.9 Chronic obstructive pulmonary disease, unspecified; Z79.84 Long term (current) use of oral hypoglycemic drugs; Z79.899 Other long term (current) drug therapy
CPT/HCPCS: 44970; 93005; 85025; 80048; 36415; 82962 ×2; 88304; 71046; J2704; J2710; J2250; J3010; J2175; J0690 ×2; J7030; J2405; J1170

== ENCOUNTER 2018-11-21 06:47 | Day surgery (SDC) | payer OTHER ==
[2018-11-18 12:16] LABS: Absolute Lymphocytes (CBC) 1.5 K/uL (0.7-4.9); Basophils % 0.9 % (0-1.3); Hematocrit 41.4 % (36.0-45.0); Lymphocytes % 28.9 % (15.3-44.8); MPV 8.8 fL (7.6-11.3); RBC Red Blood Cell Count 4.65 M/uL (3.86-4.86)
[2018-11-18 12:21] LABS: Protime INR 1.01
[2018-11-18 12:29] LABS: Potassium 3.8 mmol/L (3.5-5.1)
--- OUTSIDE RECORDS SUMMARY | 2018-11-21 06:49 | XMS REPORT ---
[...] Start End Date Status Dosage Date Citalopram [facility] 52592-570 Active not defined Hydrobromide 1-01 Metformin HCl [facility] 59563-767 Active not defined 8-01 Acetaminophen-Cod [facility] 64521-724 Active not defined eine #4 0-01 Lisinopril [facility] 33093-951 Active not defined 1-01 Furosemide ND 0 Active not defined Glimepiride [facility] 02277-273 Active not defined 6-01 Results No Known Results Summary Purpose eClinicalWorks Submission
--- OUTSIDE RECORDS SUMMARY | 2018-11-21 06:49 | XMS REPORT ---
[...] Start End Date Status Dosage Date Acetaminophen-Cod [facility] 68583-986 Active not defined eine #4 0-[address] [facility] 42978-868 Active not defined Hydrobromide 1-[address] [facility] 87993-568 Active not defined 1-[address] [facility] 48029-906 Active not defined 6-01 Furosemide ND 0 Active not defined Metformin HCl [facility] 89570-987 Active not defined 8-01 Results No Known Results Summary Purpose eClinicalWorks Submission
--- OUTSIDE RECORDS SUMMARY | 2018-11-21 06:49 | XMS REPORT ---
[...] End Date Status Dosage Date Metformin HCl [facility] 73653-764 Active not defined 8-01 Furosemide ND 0 Active not defined Lisinopril [facility] 99516-554 Active not defined 1-01 Acetaminophen-Cod [facility] 99989-147 Active not defined eine #4 0-01 Citalopram [facility] 03742-038 Active not defined Hydrobromide 1-01 Glimepiride [facility] 62945-216 Active not defined 6-01 Results No Known Results Summary Purpose eClinicalKVZ Sports Submission
--- OUTSIDE RECORDS SUMMARY | 2018-11-21 06:49 | XMS REPORT ---
:1960 [facility] [address] [place] [address] Care Team Providers Name Role Phone Unavailable Unavailable Unavailable Problems This patient has no known problems. Allergies, Adverse Reactions, Alerts This patient has no known allergies or adverse reactions. Medications This patient has no known medications.
--- OUTSIDE RECORDS SUMMARY | 2018-11-21 06:49 | XMS REPORT ---
[...] End Date Status Dosage Date Lisinopril [facility] 31087-504 Active not defined 1-01 Citalopram [facility] 19703-057 Active not defined Hydrobromide 1-01 Metformin HCl [facility] 14114-942 Active not defined 8-01 Furosemide ND 0 Active not defined Acetaminophen-Cod [facility] 00331-727 Active not defined eine #4 0-01 Glimepiride [facility] 89587-642 Active not defined 6-01 Results No Known Results Summary Purpose eClinicalWorks Submission
[2018-11-21] MEDS ORDERED: HEPA 1000U/500MLS 2,000 UNIT/1,000 ML BAG IV ONE (06:56)
[2018-11-21] MEDS ORDERED: LIDOCAINE 1% 20 ML MDV ONE (06:56)
[2018-11-21] MEDS ORDERED: NA CHLORIDE 0.9% 500 ML ONE (07:19)
[2018-11-21] MEDS ORDERED: HEPARIN 5000 UNIT/ML 1 ML VIAL ONE (07:52)
[2018-11-21] MEDS ORDERED: MIDAZOLAM HCL 2 MG/2 ML INJ ONE (07:53)
[2018-11-21] MEDS ORDERED: NITROGLYCERIN 100 MCG/ML SYR (for cath lab use only) IV ONE (07:53)
[2018-11-21] MEDS ORDERED: FENTANYL CITR 100 MCG/2 ML ONE (07:53)
[2018-11-21] MEDS ORDERED: NICARDIPINE HCL 25 MG/10 ML IV ONE (07:53)
[2018-11-21] MEDS ORDERED: ATROPINE SULF 1 MG/10 ML SYR IV ONE (07:53)
[2018-11-21] MEDS ORDERED: NA CHLORIDE 0.9% 0 ML IV ONE (07:53)
[2018-11-21] MEDS ORDERED: NITROGLYCERIN/D5W 25 MG/250 ML BTL IV ONE (07:54)
[2018-11-21 09:17] VITALS: TEMP 97.4
[2018-11-21 10:05] VITALS: O2SAT 98
[2018-11-21 10:24] VITALS: BP 115/65
--- NOTE | 2018-11-21 19:02 | OP ---
Surgeon: Teddy Casas MD Procedure: Left heart catheterization, coronary left ventricular angiography. Procedure Findings: The patient has a 50% stenosis in the mid LAD well after a very large first diag onal. She has normal left main, normal circumflex, normal right coronary artery. Left ventricular e jection fraction normal. All of her pressures were normal. It is felt to be a cardiac cath with mil d CAD and not a patient who needs a stent or other revascularization. Procedure In Detail: The patient was brought to the cardiac paving and surfacing labourer in a fasting state, sedated wit h Versed and fentanyl, prepared and draped in usual sterile fashion. Right radial approach was used. The tissues around the right radial artery were anesthetized with 1% lidocaine. The artery was ent ered using a 21-gauge needle, cannulated with a 0.021 inch diameter guidewire, and then a 6-[place] radial sheath was placed. The sheath was flushed and a radial cocktail was given consisting of nicardipine, heparin, and nitroglycerin. We were able to guide a TIG catheter into the ascending aor ta using fluoroscopy and a short radius J-tip Terumo Glidewire. With a TIG catheter, we were able to angiogram left ventricle, right coronary artery and left coronary artery. Adequate views and multip le views were taken of each artery. At the end of the procedure when the decision was made not to do an intervention, we withdrew the TIG catheter over a J-wire. We flushed the sheath, removed it, and closed the arteriotomy using a TR band. Estimated Blood Loss: 5 cc. Manager Of Environmental Services: Anabel Lund. Complications During The Procedure: None. LOR/ROGERS Voice ID: [id number] Report ID: [id number]
== END 2018-11-21 10:25 | disposition home or self-care (01) ==
LOC: CCL 06:47
PROVIDERS: ATTEND Internal Medicine
DX: I25.10 Atherosclerotic heart disease of native coronary artery without angina pectoris (principal); I10 Essential (primary) hypertension; E78.5 Hyperlipidemia, unspecified; J44.9 Chronic obstructive pulmonary disease, unspecified; F17.210 Nicotine dependence, cigarettes, uncomplicated; E11.9 Type 2 diabetes mellitus without complications
CPT/HCPCS: 85025; 80048; 36415; 85610; 82962; 85730; 93458; C1893; J1644; J2250; J3010; J0583 ×2

== ENCOUNTER 2022-12-25 08:12 | Emergency (ER) | payer OTHER ==
--- OUTSIDE RECORDS SUMMARY | 2022-12-25 08:17 | XMS REPORT | Continuity of Care Document ---
:1960 Author Organization [facility] t Address [address] [facility] [address] [place] [id number] Care Team Providers Name Role Phone LINCOLN ESCALANTE Primary Care Physician Unavailable Lincoln Escalante Attending Clinician Unavailable [email or web address] Attending Clinician Unavailable EVELINE THAO Attending Clinician Unavailable Nora SHIPPING CLERK/ADMINEveline Attending Clinician DORIS RICCI Attending Clinician Unavailable Radhames PACDoris S Attending Clinician LINCOLN ESCALANTE Attending Clinician Unavailable RADIOLOGY Attending Clinician Unavailable ANTONY Attending Clinician Unavailable Cheri Marquis DPM, Ronald E Attending Clinician KELLE ALONZO JR Attending Clinician Unavailable Doctor Unassigned, [place] Attending Clinician Unavailable Pob, [facility] Attending Clinician Unavailable JULIO CESAR APONTE Attending Clinician Unavailable Julio Cesar Aponte MD Attending Clinician Violet Coffey MD Attending Clinician VIOLET COFFEY Attending Clinician Unavailable Kacy Viramontes S Attending Clinician KACY KAY Attending Clinician Unavailable Only, Adc Test Attending Clinician Unavailable Sreekanth SENIOR LEAD SOFTWARE ENGINEER, Anmol F Attending Clinician Unavailable [email or web address] Admitting Clinician Unavailable NORA EVELINE Admitting Clinician Unavailable SALLYJAMILAHARIK VINCE Chacon Admitting Clinician Unavailable ANTONY Admitting Clinician Unavailable Cheri Marquis DPM, Ronald E Admitting Clinician KELLE ALONZO JR Admitting Clinician Unavailable JULIO CESAR APONTE Admitting Clinician Unavailable Violet Coffey MD Admitting Clinician VIOLET COFFEY Admitting Clinician Unavailable Payers Payer Name Policy Type Policy Number Effective Date Expiration Date Ines up [facility] [place] [id number] [place] - [place] - [place] - [place] ([place]IC[place] REPLACEMENT/ADV ANTAGE - HMO) [facility] TOTAL [id number] 2021 CARE MEDICARE 00:00:00 [facility] [id number] 2021 00:00:00 Formerly [facility], [facility] C1 [id number] Common Sp maria elena ing Medicare - [facility] Problems Condition Condition Condition Status Onset Resolution Last Treating Co mments Source Name Details Category Date Date Treatment Clinician Date Total knee Total knee Disease Active U nivers replacemen replacemen 3-22 it y of [place] status[place] [facility] [place] Arthritis Arthritis Disease Active 2008-03 Uni vers 2-10 ity of 00:00: [place] [address] [place] [address] Branch [id number] Pain, Problem Active Common joint, Spirit knee, left - [facility] [id number] Morbid Problem Active Common (severe) Spirit obesity - [facility] due to [facility] [id number] Bilateral Problem Active Com mon primary Spirit osteoarthr - [facility] itis of [facility] [id number] Primary Problem Active Comm on osteoarthr Spirit itis of - [facility] right knee [facility] [id number] Primary Problem Active Comm on osteoarthr Spirit itis of - [facility] left knee [facility] [id number] Pedal Problem Active Common edema Spirit - [facility] [id number] Other Problem Active Common chronic Spirit pain [facility] Allergies, Adverse Reactions, Alerts Allergy Allergy Status Severity Reaction(s) Onset Inactive Treating Comm ents Source Name Type Date Date Clinician NO KNOWN Drug Active Univers ALLERGIE Class ity of S [facility] atorvast atorvast Active Unknown Commo n atin atin [facility] Social History Social Habit Start Date Stop Date Quantity Comments Source History of Tobacco Common Spirit - Use [facility] Sex Assigned At Common Sp maria elena - [facility] Exposure to 2022-02-15 2022-02-25 Not sure [facility] SARS-CoV-2 (event) 00:00:00 12:22:00 [facility] Alcohol intake 2021-11-27 2021-11-27 Current University of 00:00:00 00:00:00 non-drinker of [facility] alcohol [place] (finding) Cigarettes smoked 2020-05-20 2020-05-20 Univers ity of current (pack per 00:00:00 00:00:00 [facility] ) - Reported Branch Cigarette 2020-05-20 2020-05-20 University of pack-years 00:00:00 00:00:00 [facility] Tobacco use and 2020-05-20 2020-05-20 Smokeless Universit y of exposure 00:00:00 00:00:00 tobacco [facility]-user [facility] Comment 2020-05-20 2020-05-20 vapor Universit y of 00:00:00 00:00:00 [facility] Smoking Status Start Date Stop Date Source Smokes tobacco daily 2020-05-20 00:00:00 Univers ity of [facility] Never Smoker [facility] Medications Ordered Filled Start Stop Current Ordering Indication Dosage Frequency Signature Comments Components Source Medication Medication Date Date Medication? Clinician (SIG) Name Name ketorolac 2021-03- No 30mg 30 mg, Unive rs (TORADOL) 04-28 Slow IV ity of injection 19:30: 19:31 Push, [place] 30 mg 00 :00 ONCE, 1 Medical dose, On Branch Wed02/25/22 at 1345, Routine ondansetron 2021-03- No 4mg 4 mg, Slow Univers (ZOFRAN 2-28 12-28 IV Push, ity of (PF)) 19:15: 19:28 ONCE, 1 [place] injection 4 00 :00 dose, On Medi craig mg Wed Branch 02/25/22 at 1315, ASPEN ketorolac 2021-03 Yes [id number] 10mg Take 1 U nivers 10 mg 2-28 tablet by ity of tablet 00:00: mouth [place] 00 every 8 Medical (eight) Branch hours as needed for Pain (scale 4-6) or Pain (scale 7-10). methocarbam 2021-03 Yes [id number] 500mg Take 1 Univers oL 500 mg 2-28 tablet by ity o f tablet 00:00: mouth 4 [place] 00 (four) Medical times Branch daily as needed for Pain (scale 7-10), Pain (scale 4-6) or Pain (scale 1-3). methocarbam No 1000mg 1,000 mg, Univers oL -30 09-30 Oral, ity of (ROBAXIN) 02:15: 02:07 ONCE, 1 [place] tablet 00 :00 dose, On Medical 1,000 mg Anitha Branch 11/27/21 at 2115, ASPEN methocarbam Yes [id number] 500mg Take 1 Univers oL 500 mg 9- tablet by ity o f tablet 00:00: mouth 4 [place] 00 (four) Medical times Branch daily as needed for Pain (scale 4-6). methocarbam 2021- No [id number] 500mg Take 1 Univers oL 500 mg 11-27- tablet by ity of tablet 00:00: 00:00 mouth 4 [place] 00 :00 (four) Medical times Branch daily as needed for Pain (scale 4-6). ketorolac 2021- No 30mg 30 mg, Unive rs (TORADOL) 5-20 05-20 Slow IV ity of injection 16:30: 15:26 Push, [place] 30 mg 00 :00 ONCE, 1 Medical dose, On Branch 07/18/21 at 1130, Routine, PACU ketorolac 2021- No 30mg 30 mg, Unive rs (TORADOL) 5-20 05-20 Slow IV ity of injection 16:30: 15:26 Push, [place] 30 mg 00 :00 ONCE, 1 Medical dose, On Branch Wed07/18/21 at 1130, Routine, PACU diphenhydrA 2021-2021- No 25mg 25 mg, Uni vers MINE 5-20 05-20 Intravenou ity of (BENADRYL) 16:15: 15:21 s, ONCE, 1 [place] injection 00 :00 dose, On Medica l 25 mg Wed07/18/21 at 1115, Routine, Intra-op diphenhydrA 2021- No 25mg 25 mg, Uni vers MINE -20 05-20 Intravenou ity of (BENADRYL) 16:15: 15:21 s, ONCE, 1 [place] injection 00 :00 dose, On Medica l 25 mg Wed07/18/21 at 1115, Routine, Intra-op lactated 2021-0 Yes 1000mL at 75 Univer s ringers IV 5-20 mL/hr, ity of infusion 15:15: 1,000 mL, [place] 1,000 mL 00 IV Medical Infusion, Branch CONTINUOUS , Starting on Wed07/18/21 at 1015, Until Discontinu ed, Routine, PACU lactated 2021-0 2021- No 1000mL at 75 Unive rs ringers IV 5-20 05-20 mL/hr, ity of infusion 15:15: 19:24 1,000 mL, [place] 1,000 mL 00 :51 IV Medical Infusion, Branch CONTINUOUS , Starting on Wed07/18/21 at 1015, Until Wed07/18/21 at 1424, Routine, PACU FENTanyl PF 2021-0 Yes 25ug 25 mcg, Uni vers (SUBLIMAZE 5-20 Slow IV ity of (PF)) 15:01: Push, [place] injection 42 Q5MIN PRN, Medi craig 25 mcg 4 doses, Branch Starting on Wed07/18/21 at 1001, Until Discontinu ed, Routine, Pain (scale 4-6), PACU ondansetron 2021-0 Yes 4mg 4 mg, Slow Univers (ZOFRAN 5-20 IV Push, ity of (PF)) 15:01: PRN, 1 [place] injection 4 42 dose, Medical mg Starting Branch on Wed07/18/21 at 1001, Until Discontinu ed, Routine, Nausea and Vomiting (N/V), PACU FENTanyl PF 2021- No 25ug 25 mcg, Un dinesh (SUBLIMAZE 07-18-20 Slow IV ity o f (PF)) 15:01: 19:24 Push, [place] injection 42 :51 Q5MIN PRN, Medi craig 25 mcg 4 doses, Branch Starting on Wed07/18/21 at 1001, Until Wed07/18/21 at 1424, Routine, Pain (scale 4-6), PACU ondansetron 2021- No 4mg 4 mg, Slow Univers (ZOFRAN 07-18-20 IV Push, ity of (PF)) 15:01: 19:24 PRN, 1 [place] injection 4 42 :51 dose, Medical mg Starting Branch on Wed07/18/21 at 1001, Until Wed07/18/21 at 1424, Routine, Nausea and Vomiting (N/V), PACU bupivacaine 2021- No PRN, Unive rs liposome 07-18 05-20 Starting ity of (PF) 14:26: 16:41 on Wed (EXPAREL 00 :26 07/18/21 at Medic al (PF)) 1.3 % 0926, Branch (13.3 Until Wed mg/mL) 07/18/21 at injection 1141, Routine, Intra-op sodium 2021- No PRN, Univers chloride 07-18 05-20 Starting ity of 0.9 % 14:08: 16:41 on Wed [place] irrigation 00 :07/18/21 at Med ical solution 0908, Branch Until Wed07/18/21 at 1141, Intra-op bupivacaine 2021- No PRN, Unive rs (preserv 07-18 05-20 Starting ity of free) 0.5% 13:35: 16:41 on Weda s (SENSORCAIN 00 :26 07/18/21 at Nh dical E MPF) 0.5 0835, Branch % (5 mg/mL) Intra-op 5 mL, lidocaine 1% (PF) (XYLOCAINE) 5 mL ALBUTEROL Yes Inhale as Uni vers 90 5-20 needed. ity of MCG/ACTUATI 12:24: [place] ON INHALE 51 Medical AERO Branch SYMBICORT Yes 2 puffs Unive rs 160-4.5 5-20 twice ity of MCG/ACTUATI 12:24: daily [place] ON INHALE 51 Medical HFAA Branch ADVAIR Yes Inhale as Univer s DISKUS 5-20 needed. ity of 500-50 12:24: Patient [place] MCG/DOSE 51 does not Medical INHALE DSDV take this Bra [facility] POTASSIUM Yes 1 tablet Univ ers CHLORIDE 20 5-20 PO three ity of MEQ ORAL 12:24: times [place] PACK 51 daily Medical Branch lisinopril Yes 30mg Take 30 mg U nivers 30 mg 5-20 by mouth ity of tablet 12:24: daily. [place] [address] Medical Branch glimepiride 0 Yes 4mg Take 4 mg U nivers 4 mg tablet 5-20 by mouth ity of 12:24: daily with [place] [address] breakfast. Medical Branch metFORMIN Yes 500mg Take 500 Uni vers 500 mg 5-20 mg by ity of tablet 12:24: mouth 2 [place] [address] (two) Medical times Branch daily with meals. primidone Yes 200mg Take 200 Uni vers 50 mg 5-20 mg by ity of tablet 12:24: mouth [place] [address] daily. At Medical bedtime Branch pravastatin 0 Yes 40mg Take 40 mg Univers 40 mg 5-20 by mouth ity of tablet 12:24: at [place] [address] bedtime. Medical Branch ALBUTEROL Yes Inhale as Uni vers 90 5-20 needed. ity of MCG/ACTUATI 12:24: [place] ON INHALE 51 Medical AERO Branch SYMBICORT Yes 2 puffs Unive rs 160-4.5 5-20 twice ity of MCG/ACTUATI 12:24: daily [place] ON INHALE 51 Medical HFAA Branch ADVAIR 0 Yes Inhale as Univer s DISKUS 5-20 needed. ity of 500-50 12:24: Patient [place] MCG/DOSE 51 does not Medical INHALE DSDV take this Bra nch POTASSIUM 0 Yes 1 tablet Univ ers CHLORIDE 20 5-20 PO three ity of MEQ ORAL 12:24: times [place] PACK 51 daily Medical Branch lisinopril Yes 30mg Take 30 mg U nivers 30 mg 5-20 by mouth ity of tablet 12:24: daily. [place] [address] Medical Branch glimepiride 0 Yes 4mg Take 4 mg U nivers 4 mg tablet 5-20 by mouth ity of 12:24: daily with [place] [address] breakfast. Medical Branch metFORMIN Yes 500mg Take 500 Uni vers 500 mg 5-20 mg by ity of tablet 12:24: mouth 2 [place] [address] (two) Medical times Branch daily with meals. primidone Yes 200mg Take 200 Uni vers 50 mg 5-20 mg by ity of tablet 12:24: mouth [place] [address] daily. At Medical bedtime Branch pravastatin Yes 40mg Take 40 mg Univers 40 mg 5-20 by mouth ity of tablet 12:24: at [place] [address] bedtime. Medical Branch ALBUTEROL Yes Inhale as Uni vers 90 5-20 needed. ity of MCG/ACTUATI 12:24: [place] ON INHALE 51 Medical AERO Branch SYMBICORT Yes 2 puffs Unive rs 160-4.5 5-20 twice ity of MCG/ACTUATI 12:24: daily [place] ON INHALE 51 Medical HFAA Branch ADVAIR Yes Inhale as Univer s DISKUS 5-20 needed. ity of 500-50 12:24: Patient [place] MCG/DOSE 51 does not Medical INHALE DSDV take this Bra [facility] POTASSIUM Yes 1 tablet Univ ers CHLORIDE 20 5-20 PO three ity of MEQ ORAL 12:24: times [place] PACK 51 daily Medical Branch lisinopril Yes 30mg Take 30 mg U nivers 30 mg 5-20 by mouth ity of tablet 12:24: daily. [place] [address] Medical Branch glimepiride 0 Yes 4mg Take 4 mg U nivers 4 mg tablet 5-20 by mouth ity of 12:24: daily with [place] [address] breakfast. Medical Branch metFORMIN Yes 500mg Take 500 Uni vers 500 mg 5-20 mg by ity of tablet 12:24: mouth 2 [place] [address] (two) Medical times Branch daily with meals. primidone 2021-0 Yes 200mg Take 200 Uni vers 50 mg 5-20 mg by ity of tablet 12:24: mouth [place] [address] daily. At Medical bedtime Branch pravastatin Yes 40mg Take 40 mg Univers 40 mg 5-20 by mouth ity of tablet 12:24: at [place] [address] bedtime. Medical Branch ALBUTEROL Yes Inhale as Uni vers 90 5-20 needed. ity of MCG/ACTUATI 12:24: [place] ON INHALE 51 Medical AERO Branch SYMBICORT Yes 2 puffs Unive rs 160-4.5 5-20 twice ity of MCG/ACTUATI 12:24: daily [place] ON INHALE 51 Medical HFAA Branch ADVAIR Yes Inhale as Univer s DISKUS 5-20 needed. ity of 500-50 12:24: Patient [place] MCG/DOSE 51 does not Medical INHALE DSDV take this Bra [facility] POTASSIUM Yes 1 tablet Univ ers CHLORIDE 20 5-20 PO three ity of MEQ ORAL 12:24: times [place] [facility] 51 daily Medical Branch lisinopril Yes 30mg Take 30 mg U nivers 30 mg 5-20 by mouth ity of tablet 12:24: daily. [place] [address] Medical Branch glimepiride Yes 4mg Take 4 mg U nivers 4 mg tablet 5-20 by mouth ity of 12:24: daily with [place] [address] breakfast. Medical Branch metFORMIN Yes 500mg Take 500 Uni vers 500 mg 5-20 mg by ity of tablet 12:24: mouth 2 [place] [address] (two) Medical times Branch daily with meals. primidone Yes 200mg Take 200 Uni vers 50 mg 5-20 mg by ity of tablet 12:24: mouth [place] [address] daily. At Medical bedtime Branch pravastatin Yes 40mg Take 40 mg Univers 40 mg 5-20 by mouth ity of tablet 12:24: at [place] [address] bedtime. Medical Branch ALBUTEROL Yes Inhale as Uni vers 90 5-20 needed. ity of MCG/ACTUATI 12:24: [place] ON INHALE 51 Medical AERO Branch SYMBICORT Yes 2 puffs Unive rs 160-4.5 5-20 twice ity of MCG/ACTUATI 12:24: daily [place] ON INHALE 51 Medical HFAA Branch ADVAIR 2022-0 Yes Inhale as Univer s DISKUS 5-20 needed. ity of 500-50 12:24: Patient [place] MCG/DOSE 51 does not Medical INHALE DSDV take this Bra [facility] POTASSIUM Yes 1 tablet Univ ers CHLORIDE 20 5-20 PO three ity of MEQ ORAL 12:24: times [place] PACK 51 daily Medical Branch lisinopril Yes 30mg Take 30 mg U nivers 30 mg 5-20 by mouth ity of tablet 12:24: daily. [place] [address] Medical Branch glimepiride 0 Yes 4mg Take 4 mg U nivers 4 mg tablet 5-20 by mouth ity of 12:24: daily with [place] [address] breakfast. Medical Branch metFORMIN Yes 500mg Take 500 Uni vers 500 mg 5-20 mg by ity of tablet 12:24: mouth 2 [place] 51 (two) Medical times Branch daily with meals. primidone Yes 200mg Take 200 Uni vers 50 mg 5-20 mg by ity of tablet 12:24: mouth [place] [address] daily. At Medical bedtime Branch pravastatin Yes 40mg Take 40 mg Univers 40 mg 5-20 by mouth ity of tablet 12:24: at [place] [address] bedtime. Medical Branch lactated 2021- No 1000mL at 42 Unive rs ringers IV 5-20 05-20 mL/hr, ity of infusion 11:45: 12:02 1,000 mL, [place] 1,000 mL 00 :00 IV Medical Infusion, Branch ONCE, 1 dose, On Wed07/18/21 at 0645, Routine, DSU Pre-op lactated 2021- No 1000mL at 42 Unive rs ringers IV 5-20 05-20 mL/hr, ity of infusion 11:45: 12:02 1,000 mL, [place] 1,000 mL 00 :00 IV Medical Infusion, Branch ONCE, 1 dose, On Wed07/18/21 at 0645, Routine, DSU Pre-op aspirin 325 2021- No [id number] 325mg Take 1 Univers mg tablet -08-16 9100 tablet by ity of 00:00: 04:59 mouth 2 [place] 00 :00 (two) Medical times Branch daily with meals for 28 days. aspirin 325 2021- No [id number] 325mg Take 1 Univers mg tablet 07-18 9100 tablet by ity of 00:00: 04:59 mouth 2 [place] 00 :00 (two) Medical times Branch daily with meals for 28 days. aspirin 325 2021- No [id number] 325mg Take 1 Univers mg tablet 07-18 9100 tablet by ity of 00:00: 04:59 mouth 2 [place] 00 :00 (two) Medical times Branch daily with meals for 28 days. ALBUTEROL Yes Inhale as Uni vers 90 5-12 needed. ity of MCG/ACTUATI 13:42: [place] ON INHALE 26 Medical AERO Branch SYMBICORT Yes 2 puffs Unive rs 160-4.5 5-12 twice ity of MCG/ACTUATI 13:42: daily [place] ON INHALE 26 Medical HFAA Branch ADVAIR Yes Inhale as Univer s DISKUS 5-12 needed. ity of 500-50 13:42: Patient [place] MCG/DOSE 26 does not Medical INHALE DSDV take this Bra [facility] POTASSIUM Yes 1 tablet Univ ers CHLORIDE 20 5-12 PO three ity of MEQ ORAL 13:42: times [place] [address] daily Medical Branch lisinopril Yes 30mg Take 30 mg U nivers 30 mg 5-12 by mouth ity of tablet 13:42: daily. [place] [address] Medical Branch glimepiride Yes 4mg Take 4 mg U nivers 4 mg tablet 5-12 by mouth ity of 13:42: daily with [place] [address] breakfast. Medical Branch metFORMIN Yes 500mg Take 500 Uni vers 500 mg 5-12 mg by ity of tablet 13:42: mouth 2 [place] [address] (two) Medical times Branch daily with meals. primidone Yes 200mg Take 200 Uni vers 50 mg 5-12 mg by ity of tablet 13:42: mouth [place] [address] daily. At Medical bedtime Branch pravastatin Yes 40mg Take 40 mg Univers 40 mg 5-12 by mouth ity of tablet 13:42: at [place] [address] bedtime. Medical Branch ALBUTEROL Yes Inhale as Uni vers 90 5-12 needed. ity of MCG/ACTUATI 13:42: [place] ON INHALE 26 Medical AERO Branch SYMBICORT Yes 2 puffs Unive rs 160-4.5 5-12 twice ity of MCG/ACTUATI 13:42: daily [place] ON INHALE 26 Medical HFAA Branch ADVAIR Yes Inhale as Univer s DISKUS 5-12 needed. ity of 500-50 13:42: Patient [place] MCG/DOSE 26 does not Medical INHALE DSDV take this Bra [facility] POTASSIUM Yes 1 tablet Univ ers CHLORIDE 20 5-12 PO three ity of MEQ ORAL 13:42: times [place] PACK 26 daily Medical Branch lisinopril Yes 30mg Take 30 mg U nivers 30 mg 5-12 by mouth ity of tablet 13:42: daily. [place] Medical Branch glimepiride Yes 4mg Take 4 mg U nivers 4 mg tablet 5-12 by mouth ity of 13:42: daily with [place] [address] breakfast. Medical Branch metFORMIN Yes 500mg Take 500 Uni vers 500 mg 5-12 mg by ity of tablet 13:42: mouth 2 (two) Medical times Branch daily with meals. primidone Yes 200mg Take 200 Uni vers 50 mg 5-12 mg by ity of tablet 13:42: mouth [place] [address] daily. At Medical bedtime Branch pravastatin Yes 40mg Take 40 mg Univers 40 mg 5-12 by mouth ity of tablet 13:42: at [place] [address] bedtime. Medical Branch iopamidol 2021- No [id number] 120mL 120 mL, Univers (ISOVUE 5-10 05-10 Intravenou ity o f 370-500 mL) 15:13: 15:14 s, ONCE, 1 [place] injection 00 :00 dose, On Medica l 120 mL Tue Branch 07/08/21 at 1030, Routine traZODone Yes 50mg Take 50 mg Un dinesh 50 mg 5-09 by mouth ity of tablet 00:00: daily. As [place] 00 needed for Medical sleep Branch acetaminoph Yes 1{tbl} Take 1 Un dinesh en-codeine 5-09 tablet by ity of 300-60 mg 00:00: mouth 2 [place] tablet 00 (two) Medical times Branch daily as needed. traZODone 2022-0 Yes 50mg Take 50 mg Un dinesh 50 mg 5-09 by mouth ity of tablet 00:00: daily. As [place] 00 needed for Medical sleep Branch acetaminoph 2022-0 Yes 1{tbl} Take 1 Un dinesh en-codeine 5-09 tablet by ity of 300-60 mg 00:00: mouth 2 [place] tablet 00 (two) Medical times Branch daily as needed. traZODone 2022-0 Yes 50mg Take 50 mg Un dinesh 50 mg 5-09 by mouth ity of tablet 00:00: daily. As [place] 00 needed for Medical sleep Branch acetaminoph 2022-0 Yes 1{tbl} Take 1 Un dinesh en-codeine 5-09 tablet by ity of 300-60 mg 00:00: mouth 2 [place] tablet 00 (two) Medical times Branch daily as needed. traZODone 2022-0 Yes 50mg Take 50 mg Un dinesh 50 mg 5-09 by mouth ity of tablet 00:00: daily. As [place] 00 needed for Medical sleep Branch acetaminoph 2022-0 Yes 1{tbl} Take 1 Un dinesh en-codeine 5-09 tablet by ity of 300-60 mg 00:00: mouth 2 [place] tablet 00 (two) Medical times Branch daily as needed. traZODone 2022-0 Yes 50mg Take 50 mg Un dinesh 50 mg 5-09 by mouth ity of tablet 00:00: daily. As [place] 00 needed for Medical sleep Branch acetaminoph 2022-0 Yes 1{tbl} Take 1 Un dinesh en-codeine 5-09 tablet by ity of 300-60 mg 00:00: mouth 2 [place] tablet 00 (two) Medical times Branch daily as needed. traZODone 2022-0 Yes 50mg Take 50 mg Un dinesh 50 mg 5-09 by mouth ity of tablet 00:00: daily. As [place] 00 needed for Medical sleep Branch acetaminoph 2022-0 Yes 1{tbl} Take 1 Un dinesh en-codeine 5-09 tablet by ity of 300-60 mg 00:00: mouth 2 [place] tablet 00 (two) Medical times Branch daily as needed. traZODone 2022-0 Yes 50mg Take 50 mg Un dinesh 50 mg 5-09 by mouth ity of tablet 00:00: daily. As [place] 00 needed for Medical sleep Branch acetaminoph 2021-0 Yes 1{tbl} Take 1 Un dinesh en-codeine 5-09 tablet by ity of 300-60 mg 00:00: mouth 2 [place] tablet 00 (two) Medical times Branch daily as needed. dicyclomine 2022-0 Yes 10mg Take 10 mg Univers 10 mg 5-05 by mouth 3 ity of capsule 00:00: (three) [place] 00 times Medical daily. Branch dicyclomine 2022-0 Yes 10mg Take 10 mg Univers 10 mg 5-05 by mouth 3 ity of capsule 00:00: (three) [place] 00 times Medical daily. Branch dicyclomine 2022-0 Yes 10mg Take 10 mg Univers 10 mg 5-05 by mouth 3 ity of capsule 00:00: (three) [place] 00 times Medical daily. Branch dicyclomine 2022-0 Yes 10mg Take 10 mg Univers 10 mg 5-05 by mouth 3 ity of capsule 00:00: (three) [place] 00 times Medical daily. Branch dicyclomine 2022-0 Yes 10mg Take 10 mg Univers 10 mg 5-05 by mouth 3 ity of capsule 00:00: (three) [place] 00 times Medical daily. Branch dicyclomine 2022-0 Yes 10mg Take 10 mg Univers 10 mg 5-05 by mouth 3 ity of capsule 00:00: (three) [place] 00 times Medical daily. Branch dicyclomine 2-0 Yes 10mg Take 10 mg Univers 10 mg 5-05 by mouth 3 ity of capsule 00:00: (three) [place] 00 times Medical daily. Branch Diclofenac 2021-0 Yes 1{appli Apply 1 U nivers Sodium 1.5 4-13 cator} Applicator i ty of % drops 00:00: to 00 affected Medical area(s) Branch daily. Diclofenac 2022-0 Yes 1{appli Apply 1 U nivers Sodium 1.5 4-13 cator} Applicator i ty of % drops 00:00: to [place] 00 affected Medical area(s) Branch daily. Diclofenac 2022-0 Yes 1{appli Apply 1 U nivers Sodium 1.5 4-13 cator} Applicator i ty of % drops 00:00: to [place] 00 affected Medical area(s) Branch daily. Diclofenac Yes 1{appli Apply 1 U nivers Sodium 1.5 4-13 cator} Applicator i ty of % drops 00:00: to [place] 00 affected Medical area(s) Branch daily. Diclofenac Yes 1{appli Apply 1 U nivers Sodium 1.5 4-13 cator} Applicator i ty of % drops 00:00: to [place] 00 affected Medical area(s) Branch daily. Diclofenac Yes 1{appli Apply 1 U nivers Sodium 1.5 4-13 cator} Applicator i ty of % drops 00:00: to [place] 00 affected Medical area(s) Branch daily. Diclofenac Yes 1{appli Apply 1 U nivers Sodium 1.5 4-13 cator} Applicator i ty of % drops 00:00: to [place] 00 affected Medical area(s) Branch daily. phentermine Yes 37.5mg Take 37.5 Univers 37.5 mg 3-14 mg by ity of capsule 00:00: mouth [place] 00 daily. Has Medical not Branch started yet-will not start until after procedure lidocaine 5 Yes 1{patch Apply 1 Univers % (700 3-14 } Patch to ity of mg/patch) 00:00: area(s) as [place] patch 00 needed. Medical Branch lidocaine 5 Yes 1{appli Apply 1 Univers % ointment 3-14 cator} Applicator i ty of 00:00: to area(s) [place] 00 as needed. Medical Branch phentermine Yes 37.5mg Take 37.5 Univers 37.5 mg 3-14 mg by ity of capsule 00:00: mouth [place] 00 daily. Has Medical not Branch started yet-will not start until after procedure lidocaine 5 Yes 1{patch Apply 1 Univers % (700 3-14 } Patch to ity of mg/patch) 00:00: area(s[place] as [place] patch 00 needed. Medical Branch lidocaine 5 Yes 1{appli Apply 1 Univers % ointment 3-14 cator} Applicator i ty of 00:00: to area(s) [place] 00 as needed. Medical Branch phentermine Yes 37.5mg Take 37.5 Univers 37.5 mg 3-14 mg by ity of capsule 00:00: mouth [place] 00 daily. Has Medical not Branch started yet-will not start until after procedure lidocaine 5 Yes 1{patch Apply 1 [facility] % (700 3-14 } Patch to ity of mg/patch) 00:00: area(s[place] patch 00 needed. Medical Branch lidocaine 5 Yes 1{appli Apply 1 [facility] % ointment 3-14 cator} Applicator i ty of 00:00: to area(s) [place] 00 as needed. Medical Branch phentermine Yes 37.5mg Take 37.5 [facility] 37.5 mg 3-14 mg by ity of capsule 00:00: mouth [place] 00 daily. Has Medical not Branch started yet-will not start until after procedure lidocaine 5 Yes 1{patch Apply 1 [facility] % (700 3-14 } Patch to ity of mg/patch) 00:00: area(s[place] patch 00 needed. Medical Branch lidocaine 5 Yes 1{appli Apply 1 [facility] % ointment 3-14 cator} Applicator i ty of 00:00: to area(s) [place] 00 as needed. Medical Branch phentermine Yes 37.5mg Take 37.5 [facility] 37.5 mg 3-14 mg by ity of capsule 00:00: mouth [place] 00 daily. Has Medical not Branch started yet-will not start until after procedure lidocaine 5 Yes 1{patch Apply 1 [facility] % (700 3-14 } Patch to ity of mg/patch) 00:00: area(s[place] patch 00 needed. Medical Branch lidocaine 5 Yes 1{appli Apply 1 [facility] % ointment 3-14 cator} Applicator i ty of 00:00: to area(s) [place] 00 as needed. Medical Branch phentermine Yes 37.5mg Take 37.5 [facility] 37.5 mg 3-14 mg by ity of capsule 00:00: mouth [place] 00 daily. Has Medical not Branch started yet-will not start until after procedure lidocaine 5 Yes 1{patch Apply 1 [facility] % (700 3-14 } Patch to ity of mg/patch) 00:00: area(s[place] patch 00 needed. Medical Branch lidocaine 5 0 Yes 1{appli Apply 1 [facility] % ointment 3-14 cator} Applicator i ty of 00:00: to area(s) [place] 00 as needed. Medical Branch phentermine 0 Yes 37.5mg Take 37.5 [facility] 37.5 mg 3-14 mg by ity of capsule 00:00: mouth [place] 00 daily. Has Medical not Branch started yet-will not start until after procedure lidocaine 5 0 Yes 1{patch Apply 1 [facility] % (700 3-14 } Patch to ity of mg/patch) 00:00: area(s[place] patch 00 needed. Medical Branch lidocaine 5 Yes 1{appli Apply 1 [facility] % ointment 3-14 cator} Applicator i ty of 00:00: to area(s) [place] 00 as needed. Medical Branch carBAMazepi 2021-0 Yes 100mg Take 100 U nivers ne 100 mg 2-13 mg by ity of 12 hr 00:00: mouth 2 [place] tablet 00 (two) Medical times Branch daily. carBAMazepi 2021-0 Yes 100mg Take 100 U nivers ne 100 mg 2-13 mg by ity of 12 hr 00:00: mouth 2 [place] tablet 00 (two) Medical times Branch daily. carBAMazepi 2-0 Yes 100mg Take 100 U nivers ne 100 mg 2-13 mg by ity of 12 hr 00:00: mouth 2 [place] tablet 00 (two) Medical times Branch daily. carBAMazepi 2-0 Yes 100mg Take 100 U nivers ne 100 mg 2-13 mg by ity of 12 hr 00:00: mouth 2 [place] tablet 00 (two) Medical times Branch daily. carBAMazepi 2-0 Yes 100mg Take 100 U nivers ne 100 mg 2-13 mg by ity of 12 hr 00:00: mouth 2 [place] tablet 00 (two) Medical times Branch daily. carBAMazepi 2022-0 Yes 100mg Take 100 U nivers ne 100 mg 2-13 mg by ity of 12 hr 00:00: mouth 2 [place] tablet 00 (two) Medical times Branch daily. carBAMazepi 2022-0 Yes 100mg Take 100 U nivers ne 100 mg 2-13 mg by ity of 12 hr 00:00: mouth 2 [place] tablet 00 (two) Medical times Branch daily. methylPREDN 2020-0 Yes [id number] 84mg Take 21 Univers ISolone 6-14 05 tablets by ity of (MEDROL, 00:00: mouth [place] CHANEL,) 4 mg 00 SEE-INSTRU Med ical tablets CTIONS. Branch follow package directions methylPREDN 2020-0 Yes [id number] 84mg Take 21 [facility] ISolone 6-14 05 tablets by ity of (MEDROL, 00:00: mouth [place] CHANEL,) 4 mg 00 SEE-INSTRU Med ical tablets CTIONS. Branch follow package directions methylPREDN 2020-0 Yes [id number] 84mg Take 21 [facility] ISolone 6-14 05 tablets by ity of (MEDROL, 00:00: mouth [place] CHANEL,) 4 mg 00 SEE-INSTRU Med ical tablets CTIONS. Branch follow package directions methylPREDN 2020-0 Yes [id number] 84mg Take 21 [facility] ISolone 6-14 05 tablets by ity of (MEDROL, 00:00: mouth [place] CHANEL,) 4 mg 00 SEE-INSTRU Med ical tablets CTIONS. Branch follow package directions methylPREDN 2020-0 Yes [id number] 84mg Take 21 [facility] ISolone 6-14 05 tablets by ity of (MEDROL, 00:00: mouth [place] CHANEL,) 4 mg 00 SEE-INSTRU Med ical tablets CTIONS. Branch follow package directions methylPREDN 2020-0 Yes [id number] 84mg Take 21 [facility] ISolone 6-14 05 tablets by ity of (MEDROL, 00:00: mouth [place] CHANEL,) 4 mg 00 SEE-INSTRU Med ical tablets CTIONS. Branch follow package directions methylPREDN 2020-0 Yes [id number] 84mg Take 21 [facility] ISolone 6-14 05 tablets by ity of (MEDROL, 00:00: mouth [place] CHANEL,) 4 mg 00 SEE-INSTRU Med ical tablets CTIONS. Branch follow package directions methylPREDN 1-0 Yes [id number] 84mg Take 21 [facility] ISolone 6-14 05 tablets by ity of (MEDROL, 00:00: mouth [place] CHANEL,) 4 mg 00 SEE-INSTRU Med ical tablets CTIONS. Branch follow package directions methylPREDN 2021-0 Yes [id number] 84mg Take 21 [facility] ISolone 6-14 05 tablets by ity of (MEDROL, 00:00: mouth [place] CHANEL,) 4 mg 00 SEE-INSTRU Med ical tablets CTIONS. Branch follow package directions methylPREDN 0 Yes [id number] 84mg Take 21 [facility] ISolone 6-14 05 tablets by ity of (MEDROL, 00:00: mouth [place] CHANEL,) 4 mg 00 SEE-INSTRU Med ical tablets CTIONS. Branch follow package directions methylPREDN Yes [id number] 84mg Take 21 [facility] ISolone 6-14 05 tablets by ity of (MEDROL, 00:00: mouth [place] CHANEL,) 4 mg 00 SEE-INSTRU Med ical tablets CTIONS. Branch follow package directions methylPREDN Yes [id number] 84mg Take 21 [facility] ISolone 6-14 05 tablets by ity of (MEDROL, 00:00: mouth [place] CHANEL,) 4 mg 00 SEE-INSTRU Med ical tablets CTIONS. Branch follow package directions ALBUTEROL Yes Inhale as Uni vers 90 3-24 needed. ity of MCG/ACTUATI 17:42: [place] ON INHALE 40 Medical AERO Branch SYMBICORT Yes 2 puffs Unive rs 160-4.5 3-24 twice ity of MCG/ACTUATI 17:42: daily [place] ON INHALE 40 Medical HFAA Branch ADVAIR Yes Inhale as Univer s DISKUS 3-24 needed. ity of 500-50 17:42: Patient [place] MCG/DOSE 40 does not Medical INHALE DSDV take this [facility] POTASSIUM Yes 1 tablet Univ ers CHLORIDE 20 3-24 PO three ity of MEQ ORAL 17:42: times [place] PACK 40 daily Medical Branch lisinopril Yes 30mg Take 30 mg U nivers 30 mg 3-24 by mouth ity of tablet 17:42: daily. [place] 40 Medical Branch glimepiride Yes 4mg Take 4 mg U nivers 4 mg tablet 3-24 by mouth ity of 17:42: daily with [place] 40 breakfast. Medical Branch metFORMIN Yes 500mg Take 500 Uni vers 500 mg 3-24 mg by ity of tablet 17:42: mouth 2 [place] 40 (two) Medical times Branch daily with meals. primidone Yes 50mg Take 50 mg Un dinesh 50 mg 3-24 by mouth ity of tablet 17:42: every 8 [place] 40 (eight) Medical hours. Branch pravastatin Yes 40mg Take 40 mg Univers 40 mg 3-24 by mouth ity of tablet 17:42: at [place] 40 bedtime. Medical Branch ALBUTEROL Yes Inhale as Uni vers 90 3-24 needed. ity of MCG/ACTUATI 17:42: [place] ON INHALE 40 Medical AERO Branch SYMBICORT Yes 2 puffs Unive rs 160-4.5 3-24 twice ity of MCG/ACTUATI 17:42: daily [place] ON INHALE 40 Medical HFAA Branch ADVAIR Yes Inhale as Univer s DISKUS 3-24 needed. ity of 500-50 17:42: Patient [place] MCG/DOSE 40 does not Medical INHALE DSDV take this [facility] POTASSIUM Yes 1 tablet Univ ers CHLORIDE 20 3-24 PO three ity of MEQ ORAL 17:42: times [place] PACK 40 daily Medical Branch lisinopril Yes 30mg Take 30 mg U nivers 30 mg 3-24 by mouth ity of tablet 17:42: daily. [place] 40 Medical Branch glimepiride Yes 4mg Take 4 mg U nivers 4 mg tablet 3-24 by mouth ity of 17:42: daily with [place] [id number] breakfast. Medical Branch metFORMIN Yes 500mg Take 500 Uni vers 500 mg 3-24 mg by ity of tablet 17:42: mouth 2 [place] 40 (two) Medical times Branch daily with meals. primidone Yes 50mg Take 50 mg Un dinesh 50 mg 3-24 by mouth ity of tablet 17:42: every 8 [place] 40 (eight) Medical hours. Branch pravastatin Yes 40mg Take 40 mg Univers 40 mg 3-24 by mouth ity of tablet 17:42: at [place] 40 bedtime. Medical Branch ALBUTEROL Yes Inhale as Uni vers 90 3-24 needed. ity of MCG/ACTUATI 17:42: [place] ON INHALE 40 Medical AERO Branch SYMBICORT Yes 2 puffs Unive rs 160-4.5 3-24 twice ity of MCG/ACTUATI 17:42: daily [place] ON INHALE 40 Medical HFAA Branch ADVAIR Yes Inhale as Univer s DISKUS 3-24 needed. ity of 500-50 17:42: Patient [place] MCG/DOSE 40 does not Medical INHALE DSDV take this [facility] POTASSIUM Yes 1 tablet Univ ers CHLORIDE 20 3-24 PO three ity of MEQ ORAL 17:42: times [place] PACK 40 daily Medical Branch lisinopril Yes 30mg Take 30 mg U nivers 30 mg 3-24 by mouth ity of tablet 17:42: daily. [place] 40 Medical Branch glimepiride Yes 4mg Take 4 mg U nivers 4 mg tablet 3-24 by mouth ity of 17:42: daily with [place] 40 breakfast. Medical Branch metFORMIN Yes 500mg Take 500 Uni vers 500 mg 3-24 mg by ity of tablet 17:42: mouth 2 [place] 40 (two) Medical times Branch daily with meals. primidone Yes 50mg Take 50 mg Un dinesh 50 mg 3-24 by mouth ity of tablet 17:42: every 8 [place] 40 (eight) Medical hours. Branch pravastatin Yes 40mg Take 40 mg Univers 40 mg 3-24 by mouth ity of tablet 17:42: at [place] 40 bedtime. Medical Branch ALBUTEROL Yes Inhale as Uni vers 90 3-24 needed. ity of MCG/ACTUATI 17:42: [place] ON INHALE 40 Medical AERO Branch SYMBICORT Yes 2 puffs Unive rs 160-4.5 3-24 twice ity of MCG/ACTUATI 17:42: daily [place] ON INHALE 40 Medical HFAA Branch ADVAIR Yes Inhale as Univer s DISKUS 3-24 needed. ity of 500-50 17:42: Patient [place] MCG/DOSE 40 does not Medical INHALE DSDV take this [facility] POTASSIUM Yes 1 tablet Univ ers CHLORIDE 20 3-24 PO three ity of MEQ ORAL 17:42: times [place] PACK 40 daily Medical Branch lisinopril Yes 30mg Take 30 mg U nivers 30 mg 3-24 by mouth ity of tablet 17:42: daily. [place] 40 Medical Branch glimepiride Yes 4mg Take 4 mg U nivers 4 mg tablet 3-24 by mouth ity of 17:42: daily with [place] 40 breakfast. Medical Branch metFORMIN Yes 500mg Take 500 Uni vers 500 mg 3-24 mg by ity of tablet 17:42: mouth 2 [place] 40 (two) Medical times Branch daily with meals. primidone Yes 50mg Take 50 mg Un dinesh 50 mg 3-24 by mouth ity of tablet 17:42: every 8 [place] 40 (eight) Medical hours. Branch pravastatin Yes 40mg Take 40 mg Univers 40 mg 3-24 by mouth ity of tablet 17:42: at [place] 40 bedtime. Medical Branch ALBUTEROL Yes Inhale as Uni vers 90 3-24 needed. ity of MCG/ACTUATI 17:42: [place] ON INHALE 40 Medical AERO Branch SYMBICORT Yes 2 puffs Unive rs 160-4.5 3-24 twice ity of MCG/ACTUATI 17:42: daily [place] ON INHALE 40 Medical HFAA Branch ADVAIR Yes Inhale as Univer s DISKUS 3-24 needed. ity of 500-50 17:42: Patient [place] MCG/DOSE 40 does not Medical INHALE DSDV take this [facility] POTASSIUM Yes 1 tablet Univ ers CHLORIDE 20 3-24 PO three ity of MEQ ORAL 17:42: times [place] PACK 40 daily Medical Branch lisinopril Yes 30mg Take 30 mg U nivers 30 mg 3-24 by mouth ity of tablet 17:42: daily. [place] 40 Medical Branch glimepiride Yes 4mg Take 4 mg U nivers 4 mg tablet 3-24 by mouth ity of 17:42: daily with [place] 40 breakfast. Medical Branch metFORMIN Yes 500mg Take 500 Uni vers 500 mg 3-24 mg by ity of tablet 17:42: mouth 2 [place] 40 (two) Medical times Branch daily with meals. primidone Yes 50mg Take 50 mg Un dinesh 50 mg 3-24 by mouth ity of tablet 17:42: every 8 [place] 40 (eight) Medical hours. Branch pravastatin 2021-0 Yes 40mg Take 40 mg Univers 40 mg 3-24 by mouth ity of tablet 17:42: at [place] 40 bedtime. Medical Branch acetaminoph 2020-0 Yes 4647 2{tbl} Take 2 Un dinesh en-codeine 3-23 tablets by ity of (TYLENOL-CO 00:00: mouth [place] DEINE #3) 00 every 4 Medical 300-30 mg (four) Branch tablet hours as needed for Pain (scale 4-6) or Pain (scale 7-10). Indication s: acute pain acetaminoph 2020-0 Yes 4647 2{tbl} Take 2 Un dinesh en-codeine 3-23 tablets by ity of (TYLENOL-CO 00:00: mouth [place] DEINE #3) 00 every 4 Medical 300-30 mg (four) Branch tablet hours as needed for Pain (scale 4-6) or Pain (scale 7-10). Indication s: acute pain acetaminoph 2020-0 Yes 4647 2{tbl} Take 2 Un dinesh en-codeine 3-23 tablets by ity of (TYLENOL-CO 00:00: mouth [place] DEINE #3) 00 every 4 Medical 300-30 mg (four) Branch tablet hours as needed for Pain (scale 4-6) or Pain (scale 7-10). Indication s: acute pain acetaminoph 2020-0 Yes 4647 2{tbl} Take 2 Un dinesh en-codeine 3-23 tablets by ity of (TYLENOL-CO 00:00: mouth [place] DEINE #3) 00 every 4 Medical 300-30 mg (four) Branch tablet hours as needed for Pain (scale 4-6) or Pain (scale 7-10). Indication s: acute pain acetaminoph 2020-0 Yes 4647 2{tbl} Take 2 Un dinesh en-codeine 3-23 tablets by ity of (TYLENOL-CO 00:00: mouth [place] DEINE #3) 00 every 4 Medical 300-30 mg (four) Branch tablet hours as needed for Pain (scale 4-6) or Pain (scale 7-10). Indication s: acute pain acetaminoph 2020-0 2022- No 4647 2{tbl} Take 2 U nivers en-codeine 3-23 05-12 tablets by it y of (TYLENOL-CO 00:00: 00:00 [place] DEINE #3) 00 :00 every 4 Medical 300-30 mg (four) Branch tablet hours as needed for Pain (scale 4-6) or Pain (scale 7-10). Indication s: acute pain acetaminoph 2021- No 4647 2{tbl} Take 2 U nivers en-codeine 05-21 05-12 tablets by it y of (TYLENOL-CO 00:00: 00:00 [place] DEINE #3) 00 :00 every 4 Medical 300-30 mg (four) Branch tablet hours as needed for Pain (scale 4-6) or Pain (scale 7-10). Indication s: acute pain Diclofenac Diclofenac 2019-03- No QID Diclofenac Common Sodium 1 % Sodium 1 % 03-09 Sodium 1 % Spirit 00:00: 00:00 - [facility] 00 :00 [facility] furosemide Yes 20mg Take 1 Tab U nivers (LASIX) 20 5-25 by mouth 2 ity of mg tablet 00:00: (two) [place] 00 times Medical daily as Branch needed (swelling) . furosemide Yes 20mg Take 1 Tab U nivers (LASIX) 20 5-25 by mouth 2 ity of mg tablet 00:00: (two) [place] 00 times Medical daily as Branch needed (swelling) . furosemide Yes 20mg Take 1 Tab U nivers (LASIX) 20 5-25 by mouth 2 ity of mg tablet 00:00: (two) [place] 00 times Medical daily as Branch needed (swelling) . furosemide Yes 20mg Take 1 Tab U nivers (LASIX) 20 5-25 by mouth 2 ity of mg tablet 00:00: (two) [place] 00 times Medical daily as Branch needed (swelling) . furosemide 0 Yes 20mg Take 1 Tab U nivers (LASIX) 20 5-25 by mouth 2 ity of mg tablet 00:00: (two) [place] 00 times Medical daily as Branch needed (swelling) . furosemide 0 Yes 20mg Take 1 Tab U nivers (LASIX) 20 5-25 by mouth 2 ity of mg tablet 00:00: (two) [place] 00 times Medical daily as Branch needed (swelling) . furosemide 2011-0 Yes 20mg Take 1 Tab U nivers (LASIX) 20 5-25 by mouth 2 ity of mg tablet 00:00: (two) [place] 00 times Medical daily as Branch needed (swelling) . furosemide Yes 20mg Take 1 Tab U nivers (LASIX) 20 5-25 by mouth 2 ity of mg tablet 00:00: (two) [place] 00 times Medical daily as Branch needed (swelling) . furosemide Yes 20mg Take 1 Tab U nivers (LASIX) 20 5-25 by mouth 2 ity of mg tablet 00:00: (two) [place] 00 times Medical daily as Branch needed (swelling) . furosemide Yes 20mg Take 1 Tab U nivers (LASIX) 20 5-25 by mouth 2 ity of mg tablet 00:00: (two) [place] 00 times Medical daily as Branch needed (swelling) . furosemide Yes 20mg Take 1 Tab U nivers (LASIX) 20 5-25 by mouth 2 ity of mg tablet 00:00: (two) [place] 00 times Medical daily as Branch needed (swelling) . furosemide Yes 20mg Take 1 Tab U nivers (LASIX) 20 5-25 by mouth 2 ity of mg tablet 00:00: (two) [place] 00 times Medical daily as Branch needed (swelling) . citalopram Yes [id number] 40mg Take 1 Tab Univers (CELEXA) 40 2-11 by mouth ity of mg tablet 00:00: daily. [facility] citalopram Yes [id number] 40mg Take 1 Tab Univers (CELEXA) 40 2-11 by mouth ity of mg tablet 00:00: daily. [facility] citalopram Yes [id number] 40mg Take 1 Tab Univers (CELEXA) 40 2-11 by mouth ity of mg tablet 00:00: daily. [facility] citalopram Yes [id number] 40mg Take 1 Tab Univers (CELEXA) 40 2-11 by mouth ity of mg tablet 00:00: daily. [facility] citalopram Yes [id number] 40mg Take 1 Tab Univers (CELEXA) 40 2-11 by mouth ity of mg tablet 00:00: daily. [facility] citalopram Yes [id number] 40mg Take 1 Tab Univers (CELEXA) 40 2-11 by mouth ity of mg tablet 00:00: daily. [place] [facility] citalopram Yes [id number] 40mg Take 1 Tab Univers (CELEXA) 40 2-11 by mouth ity of mg tablet 00:00: daily. [place] [facility] citalopram Yes [id number] 40mg Take 1 Tab Univers (CELEXA) 40 2-11 by mouth ity of mg tablet 00:00: daily. [place] [facility] citalopram Yes [id number] 40mg Take 1 Tab Univers (CELEXA) 40 2-11 by mouth ity of mg tablet 00:00: daily. [place] [facility] citalopram Yes [id number] 40mg Take 1 Tab Univers (CELEXA) 40 2-11 by mouth ity of mg tablet 00:00: daily. [place] [facility] citalopram Yes [id number] 40mg Take 1 Tab Univers (CELEXA) 40 2-11 by mouth ity of mg tablet 00:00: daily. [place] [facility] citalopram Yes [id number] 40mg Take 1 Tab Univers (CELEXA) 40 2-11 by mouth ity of mg tablet 00:00: daily. [address] Amoxicillin Amoxicillin No Amoxicilli n Afluria Afluria No Afluria Quadrivalen Quadrivalen Quadrivale t t nt Acetaminoph Acetaminoph No Acetaminop en-Codeine en-Codeine hen-Codein e Nitroglycer Nitroglycer No Nitroglyce in in rin Furosemide Furosemide No Furosemide [place] Colchicine No [place] Acetaminoph Acetaminoph No Acetaminop en-Codeine en-Codeine hen-Codein #4 #4 e #4 Trazodone Trazodone No Trazodone HCl HCl HCl Diclofenac Diclofenac No QID Diclofenac Sodium 1 % Sodium 1 % Sodium 1 % Lisinopril Lisinopril No Lisinopril Furosemide Furosemide Yes Rivas not Common [place] defined [facility] Lisinopril Lisinopril Yes Rivas not Common [place] defined [facility] Acetaminoph Acetaminoph Yes Rivas not Common en-Codeine en-Codeine [place] defined Spirit #4 #4 [facility] Citalopram Citalopram Yes Rivas not Common Hydrobromid Hydrobromid Crenshaw defined [facility] e e [facility] Atorvastati Atorvastati Yes Rivas not Common n Calcium n Calcium [place] defined Sp maria elena [facility] Trazodone Trazodone Yes Rivas not Co mmon HCl HCl Crenshaw defined [facility] Nitroglycer Nitroglycer Yes Rivas not Common in in Crenshaw defined [facility] Amoxicillin Amoxicillin Yes Rivas not Common [place] defined [facility] Amoxicillin Amoxicillin Yes Rivas not Common -Pot -Pot [place] defined [facility] Clavulanate Clavulanate [facility] Colchicine Colchicine Yes Rivas not Common Crenshaw defined [facility] Afluria Afluria Yes Rivas not Common Quadrivalen Quadrivalen [place]shaw defined [facility] t t [facility] Lidocaine Lidocaine Yes Rivas not Co mmon Crenshaw defined [facility] Metformin Metformin Yes Rivas not Co mmon HCl HCl [place] defined [facility] Glimepiride Glimepiride Yes Rivas not Common [place] defined [facility] Furosemide Furosemide Yes Rivas not Common [place] defined [facility] Albuterol Albuterol Yes Rivas not Co mmon Sulfate HFA Sulfate HFA Crenshaw defined [facility] Primidone Primidone Yes Rivas not Co mmon Crenshaw defined [facility] Acetaminoph Acetaminoph Yes Rivas not Common en-Codeine en-Codeine [place] defined [facility] Metformin Metformin No Metformin Common HCl HCl HCl [facility] Primidone Primidone No Primidone Common [facility] Citalopram Citalopram No Citalopram Common Hydrobromid Hydrobromid Hydrobromi [facility] e e de [facility] Glimepiride Glimepiride No Glimepirid Common e [facility] Albuterol Albuterol No Albuterol Common Sulfate HFA Sulfate HFA Sulfate Spirit A [facility] Atorvastati Atorvastati No Atorvastat Common n Calcium n Calcium in Calcium [facility] Lidocaine Lidocaine No Lidocaine Common [facility] Furosemide Furosemide No Furosemide Common [facility] Amoxicillin Amoxicillin No Amoxicilli Common -Pot -Pot n-Pot Spirit Clavulanate Clavulanate Clavulanat - [facility] e [facility] Amoxicillin Amoxicillin No Amoxicilli Common n [facility] Afluria Afluria No Afluria Common Quadrivalen Quadrivalen Quadrivale Spirit t t nt [facility] Acetaminoph Acetaminoph No Acetaminop Common en-Codeine en-Codeine hen-Codein [facility] e [facility] Nitroglycer Nitroglycer No Nitroglyce Common in in rin [facility] Furosemide Furosemide No Furosemide [facility] Acetaminoph Acetaminoph No Acetaminop Common en-Codeine en-Codeine hen-Codein [facility] #4 #4 e #4 [facility] Trazodone Trazodone No Trazodone Common HCl HCl HCl [facility] Colchicine Colchicine No Colchicine [facility] Lisinopril Lisinopril No Lisinopril Common [facility] Metformin Metformin No Metformin HCl HCl HCl Primidone Primidone No Primidone Citalopram Citalopram No Citalopram Hydrobromid Hydrobromid Hydrobromi e e de Glimepiride Glimepiride No Glimepirid e Albuterol Albuterol No Albuterol Sulfate HFA Sulfate HFA Sulfate HFA Atorvastati Atorvastati No Atorvastat n Calcium n Calcium in Calcium Lidocaine Lidocaine No Lidocaine Furosemide Furosemide No Furosemide Amoxicillin Amoxicillin No Amoxicilli -Pot -Pot n-Pot Clavulanate Clavulanate Clavulanat e Vital Signs Vital Name Observation Time Observation Value Comments Source Systolic blood 2022-02-25 18:24:00 111 mm[facility]Hg[facility] 2022-02-25 18:24:00 79 mm[Hg] [facility] Heart rate 2022-02-25 18:24:00 81 /min [facility] [place] [facility] Body temperature 2022-02-25 18:24:00 36.89 Pia [facility] [place] [facility] Respiratory rate 2022-02-25 18:24:00 18 /min [facility] [place] [facility] Body height 2022-02-25 18:24:00 162.6 cm [facility] [place] [facility] Body weight 2022-02-25 18:24:00 114.306 kg [facility] [place] [facility] BMI 2022-02-25 18:24:00 43.26 kg/m2 [facility] [place] [facility] Oxygen saturation in 2022-02-25 18:24:00 97 /min [facility] Arterial blood by [place] [facility] craig Pulse oximetry Branch Systolic blood 2021-11-28 02:00:00 116 mm[Hg] Univer sity of pressure [place] [facility] Diastolic blood 2021-11-28 02:00:00 96 mm[Hg] Unive rsity of pressure [place] [facility] Heart rate 2021-11-28 02:00:00 74 /min [facility] [place] [facility] Respiratory rate 2021-11-28 02:00:00 18 /min [facility] [place] [facility] Oxygen saturation in 2021-11-28 02:00:00 96 /min [facility] of Arterial blood by [email or web address] craig Pulse oximetry Branch Body temperature 2021-11-28 00:58:00 36.83 Pia [facility] [place] [facility] Body height 2021-11-28 00:58:00 162.6 cm [facility] [place] [facility] Body weight 2021-11-28 00:58:00 117.028 kg [facility] [place] [facility] BMI 2021-11-28 00:58:00 44.29 kg/m2 [facility] [place] [facility] Systolic blood 2021-07-18 15:55:00 99 mm[Hg] Univer sity of pressure [place] [facility] Diastolic blood 2021-07-18 15:55:00 50 mm[Hg] Unive rsity of pressure [place] [facility] Oxygen saturation in 2021-07-18 15:55:00 91 /min [facility] of Arterial blood by [place] [facility] craig Pulse oximetry Branch Heart rate 2021-07-18 15:50:00 73 /min [facility] [place] [facility] Respiratory rate 2021-07-18 15:50:00 16 /min [facility] Body temperature 2021-07-18 14:47:00 36.5 Pia [facility] Body height 2021-07-18 11:26:00 162.6 cm [facility] Body weight 2021-07-18 11:26:00 122.5 kg [facility] BMI 2021-07-18 11:26:00 46.36 kg/m2 [facility] Systolic blood 2021-07-18 11:49:00 106 mm[Hg] Univer sity of pressure [facility] Diastolic blood 2021-07-18 11:49:00 56 mm[Hg] Unive rsity of pressure [facility] Heart rate 2021-07-18 11:49:00 66 /min [facility] Body temperature 2021-07-18 11:49:00 36.78 Pia Univ ersity of [facility] Respiratory rate 2021-07-18 11:49:00 17 /min [facility] Oxygen saturation in 2021-07-18 11:49:00 95 /min [facility] Arterial blood by [facility] Pulse oximetry Branch Body height 2021-07-18 11:26:00 162.6 cm [facility] Body weight 2021-07-18 11:26:00 122.5 kg [facility] BMI 2021-07-18 11:26:00 46.36 kg/m2 [facility] Systolic blood 2020-09-26 15:14:00 113 mm[Hg] Univer sity of pressure [facility] Diastolic blood 2020-09-26 15:14:00 69 mm[Hg] Unive rsity of pressure [facility] Heart rate 2020-09-26 15:14:00 58 /min [facility] Respiratory rate 2020-09-26 15:14:00 20 /min Univ ersity of [facility] Body weight 2020-09-26 15:14:00 122.471 kg [facility] BMI 2020-09-26 15:14:00 46.35 kg/m2 [facility] height 2020-01-08 09:00:00 64 [in_i] [facility] - [facility] weight 2020-01-08 09:00:00 268 [lb_av] [facility] bmi 2020-01-08 09:00:00 46.00 kg/m2 [facility] blood pressure 2020-01-08 09:00:00 126 mm[Hg] [facility] - systolic [facility] blood pressure 2020-01-08 09:00:00 82 mm[Hg] [facility] - diastolic [facility] Procedures Procedure Date / Time Performing Clinician Source Performed CT ABDOMEN PELVIS WO 2022-02-25 19:51:[address] URINALYSIS 2022-02-25 19:32:00 Nora [facility] BASIC METABOLIC PANEL 2022-02-25 19:23:00 Eveline Thao [facility] (NA, K, CL, CO2, Medical Branch GLUCOSE, BUN, CREATININE, CA) CBC WITH DIFF 2022-02-25 19:23:00 Nora [facility] CONSENT/REFUSAL FOR 2022-02-25 18:10:25 Doctor Unassigned, No [facility] Name [facility] XR KNEE 3 VW RIGHT 2021-11-28 01:32:07 [facility] CONSENT/REFUSAL FOR 2021-11-28 00:45:36 Doctor Unassigned, No [facility] Name Medical Branch FL TIME OR 2021-07-18 14:30:00 Kelle Alonzo [facility] (NON-REPORTABLE) Medical Branch FL TIME OR 2021-07-18 14:30:00 Kelle Alonzo [facility] (NON-REPORTABLE) Medical Branch ACHILLES TENDON REPAIR 2021-07-18 12:44:00 [facility] EXCISION BONE SPUR 2021-07-18 12:44:00 Kelle Alonzo [facility] CALCANEUS [facility] Branch POCT GLUCOSE(AGE 2021-07-18 12:00:00 Taz Osborne [facility] >30DAYS) Medical Branch POCT GLUCOSE(AGE 2021-07-18 12:00:00 Taz Osborne [facility] >30DAYS) Medical Branch DAY SURGERY - ADC 2021-07-18 05:01:00 Doctor Unassigned, No [facility] CONSENT/REFUSAL FOR 2021-07-15 14:15:52 Doctor Unassigned, No [facility] [place] [facility]NOSIS [facility] TREATMENT Name Medical Branch ASSIGNMENT OF BENEFITS 2021-07-15 14:15:40 Doctor Unassigned, No [facility] Medical Branch EXTERNAL PROVIDER 2021-07-09 05:01:00 Doctor Unassigned, No [facility] RECORDS Name Medical Branch EXTERNAL PROVIDER 2021-07-09 05:01:00 Doctor Unassigned, No Univ [facility] RECORDS [facility] Medical Branch CT ABDOMEN PELVIS W 2021 15:18:09 Julio Cesar Aponte [facility] Branch HB CREATININE BLOOD 2021 15:09:00 Julio Cesar Aponte [facility] Medical [place] NOTICE OF PRIVACY 2021 14:28:10 Doctor Unassigned, No [facility] PRACTICES [facility] Medical Branch CONSENT/REFUSAL FOR 2021 14:27:57 Doctor Unassigned, No [facility] TREAT[facility] Medical [place] ASSIGNMENT OF BENEFITS 2021 14:26:33 Doctor Unassigned, No [facility] Medical Branch MEDICAL 2021-01-02 05:01:00 Doctor Unassigned, No [facility] RELEASE/CLEARANCE FORMS [facility] Medical [place] SEDIMENTATION RATE 2020-09-26 16:52:00 Violet Coffey [facility] Encounters Start End Encounter Admission Attending Care Care Encounter Source Date/Time Date/Time Type Type Clinicians Facility Department ID 2021-03-26 Outpatient Padmini [facility] [id number] Common 12:03:12 Lincoln barragan [id number] [facility] 2022-12-15 2022-12-15 Outpatient GC_GCBZW_Ka PRIV PRIV [id number] [facility] 00:00:00 00:00:00 bhumi_Ines [id number] Medic al 2022-12-07 2022-12-07 Outpatient GC_GCBZW_Ka PRIV PRIV [id number] [facility] 00:00:00 00:00:00 diyala_S [id number] Medic al 2022-12-07 2022-12-07 Outpatient GC_GCBZW_Ka PRIV PRIV [id number] [facility] 00:00:00 00:00:00 diyala_S [id number] Medic al 2022-11-06 2022-11-06 Outpatient GC_GCBZW_Ka PRIV PRIV [id number] [facility] 00:00:00 00:00:00 diyala_S [id number] Medic al 2022-11-06 2022-11-06 Outpatient GC_GCBZW_Ka PRIV PRIV [id number] [facility] 00:00:00 00:00:00 diyala_S [id number] Medic al 2022-11-05 2022-11-05 Outpatient GC_GCBZW_Ka PRIV PRIV [id number] [facility] 00:00:00 00:00:00 diyala_S [id number] Medic al 2022-11-05 2022-11-05 Outpatient GC_GCBZW_Ka PRIV PRIV [id number] [facility] 00:00:00 00:00:00 diyala_S [id number] Medic al 2022-10-30 2022-10-30 Outpatient GC_GCBZW_Ka PRIV PRIV [id number] [facility] 00:00:00 00:00:00 diyala_S [id number] Medic al 2022-10-16 2022-10-16 Outpatient GC_GCBZW_Ka PRIV PRIV [id number] [facility] 00:00:00 00:00:00 diyala_S [id number] Medic al 2022-02-25 2022-02-25 Emergency [facility] [id number] Univers 12:26:00 15:13:00 EVELINE ashley [facility] 2022-02-25 2022-02-25 Emergency [facility] 1.2.946.415 [id number] Univers 12:26:00 15:13:00 Eveline PADILLA 350.1.13.10 i ty of [place] 4.2.7.2.686 [facility] [id number] [facility] 084 Branch 2021-11-27 2021-11-27 Emergency X RADHAMES, [facility] ERT [id number] Univers 19:57:00 21:10:00 DORIS ity [facility] 2021-11-27 2021-11-27 Emergency [facility] 1.2.037.236 [id number] Univers 19:57:00 21:10:00 Doris S VALERIE 350.1.13.10 i ty of [place] 4.2.7.2.686 [facility] [id number] [facility] 084 Branch 2021-11-07 2021-11-07 Outpatient R PADMINI [facility] [id number] Univers 00:00:00 00:00:00 LINCOLN Barragan [facility] 2021-10-21 2021-10-21 Outpatient R RADIOLOGY [facility] RAD [id number] Univers 00:00:00 00:00:00 ity [facility] 2021-09-24 2021-09-24 Outpatient FERKARLA_ROSENDA GAN [facility] 891 [place] 00:00:00 00:00:00 HN 0727 da [facility] Program 2021-07-18 2021-07-18 [facility] 1.2.840.114 [id number] Univers 06:35:00 11:40:00 Encounter Kelle PADILLA 350.1.13.[address] [facility] 4.2.7.2.686 [facility] SURGICAL [id number] [facility] 071 Branch 2021-07-18 2021-07-18 Outpatient R CHERI PEREZ [facility] SOR [id number] Univers 06:35:00 11:40:00 KELLE ashley [facility] 2021-07-18 2021-07-18 Surgery [facility] 1.2.840.114 [id number] Univers 07:45:00 09:25:00 Kelle PADILLA [address]1.13[address] [facility] 4.2.7.2.686 [facility] s SURGICAL [id number] [facility] 020 Branch 2021-07-18 2021-07-18 Orders Doctor KYLAH 1.2.840.114 [id number] Univers 00:00:00 00:00:00 Only Unassigned, MANUEL 350.1.13.10 ity of [place] [facility] 4.2.7.2.686 Lele as [phone] [facility] 00[address] [place] 2021-07-17 2021-07-17 Out[facility] [id number] Univers 10:30:00 10:30:00 KELLE ashley [facility] 2021-07-15 2021-07-15 Residential Concierge Marisel, Adc Lab Main [facility] 1.2.8 40.114 [id number] Univers 09:45:00 10:00:00 Visit Kelle Alonzo [facility].1.13.10 [facility] [facility] [id number] Nh dic[address] 2021-07-15 2021-07-15 Outpatient Huang [facility] [id number] Univers 09:45:00 09:45:00 KELLE ashley [facility] 2021-07-15 2021-07-15 Orders Doctor KYLAH 1.2.840.114 [id number] Univers 00:00:00 00:00:00 Only Unassigned, MANUEL 350.1.13.10 ity of [place] [facility] 4.2.7.2.686 [place] as [phone] [facility] [address] [place] 2021 2021 Outpatient R ABIOLA [facility] [id number] Univers 09:28:20 23:59:00 JULIO CESAR ity [facility] 2021 2021 [facility] Aponte, [facility] 1.2.840.114 [id number] Univers 09:28:20 23:59:00 Encounter Julio Cesar PADILLA 350.1.13.[address] [facility] 4.2.7.2.[place] [id number] [facility] [address] [place] 2021-07-03 2021-07-03 Out[facility] [id number] Univers 00:00:00 00:00:00 JULIO CESAR ity of [facility] 2021-01-15 2021-01-15 Telephone [facility] 1.2.840.114 [id number] Univers 00:00:00 00:00:00 Violet Garza SPECIALTY 350.1.13.10 ity of [place].2.[place] AT [id number] Nh dical FRANNYY 198 [facility] 2021-01-02 2021-01-02 Telephone [facility] 1.2.840.114 [id number] Univers 00:00:00 00:00:00 Violet Garza HEALTH 350.1.13.10 it y [facility] 4.2.7.2.686 [place] as YADY?BLEA [id number] Nh dical KNEY [address] [place] MEDICAL OFFICE BUILDING 2021-01-02 2021-01-02 Orders Doctor KYLAH 1.2.840.114 [id number] Univers 00:00:00 00:00:00 Only Unassigned, MANUEL 350.1.13.10 ity of [place] [facility] 4.2.7.2.686 [place] as [id number] [address] 2020-09-26 2020-09-26 Hospital [facility] 1.2.840.114 [id number] Univers 10:45:45 23:59:00 Encounter Violet [facility] 350.1.13.10 ity of Surgical 4.2.7.2.686 [place] Specialti [phone] Nh dical es 809 [facility] 2020-09-26 2020-09-26 Outpatient [facility] [id number] Univers 10:45:45 23:59:00 VIOLET ity of [facility] 2020-09-26 2020-09-26 Residential Concierge Marisel, Martin Lab Main [facility] 1.2.8 40.114 [id number] Univers 11:43:40 11:58:40 Visit Violet Coffey 350.1.13.10 ity [place].2.[place] Profess[place] [phone] Nh dical critical [facility] [address] Building 2020-09-26 2020-09-26 Office [facility] 1.2.776.994 [id number] Univers 10:08:41 11:16:56 Visit Violet Baca 350.1.13.10 it y of Surgical 4.2.7.2.686 [place] Specialti [id number] Me dical es 198 [facility] 2020-09-26 2020-09-26 Hospital [facility] 1.2.840.114 [id number] Univers 10:32:35 10:44:00 Encounter Violet Baca 350.1.13.10 ity of Surgical 4.2.7.2.686 [place] Specialti [id number] Me dical es 809 [facility] 2020-08-21 2020-08-21 Orders Doctor MONTERO 1.2.840.114 [id number] Univers 00:00:00 00:00:00 Only Unassigned, MANUEL 350.1.13.10 ity of [place] [facility] 4.2.7.2.686 [place] as [id number] [address] 2020-08-12 2020-08-12 Office [facility] 1.2.840.114 [id number] Univers 15:44:48 15:59:48 Visit Kacy Chacon [facility] 350.1.13.10 it y of Surgical 4.2.7.2.686 [place] Specialti [phone] Nh dical es 198 [facility] 2020-08-12 2020-08-12 Outpatient R ELIZA [facility] [id number] Univers 15:45:00 15:45:00 KACY ity of [facility] 2020-07-22 2020-07-22 Orders Doctor KYLAH Escalona2.840.114 [id number] Univers 00:00:00 00:00:00 Only Unassigned, MANUEL 350.1.13.10 ity of [place] [facility] 4.2.7.2.686 [place] as [id number] [address] 2020-07-05 2020-07-05 Orders Doctor MONTERO 1Isabella2.840.114 [id number] Univers 00:00:00 00:00:00 Only Unassigned, MANUEL 350.1.13.10 ity of [place] [facility] 4.2.7.2.686 [place]le as [id number] [facility] [address] [place] 2020-07-04 2020-07-04 Office [facility] 1.2.914.271 [id number] Univers 08:28:58 08:41:26 Visit Violet Baca 350.1.13.10 it y of Surgical 4.2.7.2.686 [place] Specialti [id number] Nh dical es 198 [facility] 2020-07-04 2020-07-04 Outpatient R [facility] [id number] Univers 08:30:00 08:30:00 VIOLET ity of [facility] 2020-06-28 2020-06-28 Telephone [facility] 1.2.455.272 [id number] Univers 00:00:00 00:00:00 [facility] 350.1.13.10 it y of Surgical 4.2.7.2.686 [place] Specialti [phone] Nh dicri es 198 [facility] 2020-06-28 2020-06-28 Orders Doctor KYLAH 1.2.840.114 [id number] Univers 00:00:00 00:00:00 Only Unassigned, MANUEL 350.1.13.10 ity of [place] [facility] 4.2.7.2.686 [place] as [id number] [facility] [address] [place] 2020-06-19 2020-06-19 Telephone [facility] 1.2.840.114 [id number] Univers 00:00:00 00:00:00 Violet Garza Health 350.1.13.10 it y of Surgical 4.2.7.2.686 [place] Specialti [id number] Nh dical es 198 [facility] 2020-06-04 2020-06-04 Hospital [facility] 1.2.840.114 [id number] Univers 11:18:25 23:59:00 Encounter Violet Padilla 350.1.13.10 ity of [place] [id number] [facility] [address] [place] 2020-06-04 2020-06-04 Office [facility] 1.2.840.114 [id number] Univers 12:49:19 13:04:19 Visit Kacy Baca 350.1.13.10 it y of Surgical 4.2.7.2.686 [place] Specialti [id number] [facility] es 198 [facility] 2020-06-04 2020-06-04 Outpatient [facility] [id number] Univers 00:00:00 00:00:00 VIOLET ashley [facility] 2020-06-03 2020-06-03 Telephone [facility] 1.2.840.114 [id number] Univers 00:00:00 00:00:00 Violet Garza Health 350.1.13.10 it y of Surgical 4.2.7.2.686 [place] Specialti [id number] [facility] es 198 [facility] 2020-05-29 2020-05-29 Orders Doctor MONTERO 1.2.840.114 [id number] Univers 00:00:00 00:00:00 Only Unassigned, MANUEL 350.1.13.10 ity of [place] [facility] 4.2.7.2.686 Lele as [phone] [facility] [address] [place] 2020-05-23 2020-05-23 Orders Doctor MONTERO 1.2.840.114 [id number] Univers 00:00:00 00:00:00 Only Unassigned, MANUEL 350.1.13.10 ity of [place] [facility] 4.2.7.2.686 Lele as [id number] [facility] [address] [place] 2020-05-20 2020-05-22 [facility] 1.2.840.114 [id number] Univers 08:30:00 17:24:00 Encounter Violetbj Padilla 350.1.13.10 ity of [place] 4.2.7.2.686 [place] [facility] [id number] [facility] [address] [place] 2020-05-20 2020-05-22 Outpatient R [facility]RLIND[facility] SOR [id number] Univers 08:30:00 17:24:00 VIOLET ashley [facility] 2020-05-20 2020-05-20 Orders Doctor MONTERO 1.2.840.114 [id number] Univers 00:00:00 00:00:00 Only Unassigned, MANUEL 350.1.13.10 ity of [place] [facility] 4.2.7.2.686 Lele as [phone] [facility] 009 Branch 2020-05-17 2020-05-17 Laboratory Only, Adc Test [facility] 1.2.840. 114 [id number] Univers 11:53:30 12:08:30 Only Violet Coffey Greg Padilla 350.1.13.10 ity of [place] 4.2.7.2.686 [facility] [id number] [facility] 353 [address] 2020-05-17 2020-05-17 Hospital Erlinda [facility] 1.2.840.114 [id number] Univers 11:56:39 11:56:39 Encounter Violet Padilla 350.1.13.10 ity of [place] 4.2.7.2.686 [facility] [id number] [facility] 807 Branch 2020-05-17 2020-05-17 Outpatient R ERLINDA [facility] [id number] Univers 11:30:00 11:30:00 VIOLET ashley [facility] 2020-05-16 2020-05-16 Ancillary Anmol Stack [facility] 1.2.840. 114 [id number] Univers 13:04:12 14:20:35 Visit Erlinda Violet Padilla 350.1.13.10 ity of [place] 4.2.7.2.686 [facility] Professio [phone] Me dical nal 179 [facility] 2020-05-16 2020-05-16 Outpatient R ERLINDA [facility] [id number] Univers 13:00:00 13:00:00 VIOLET ashley [facility] 2020-05-15 2020-05-15 Candelaria Kay [facility] 1.2.840.114 [id number] Univers 00:00:00 00:00:00 [facility] 350.1.13.10 it y of Surgical 4.2.7.2.686 [place] as Specialti [id number] Nh dical es 198 [facility] 2020-05-14 2020-05-14 Telephone [facility] 1.2.952.312 [id number] Univers 00:00:00 00:00:00 Kacy Chacon [facility] 350.1.13.10 it y of Surgical 4.2.7.2.686 [place] as Specialti [phone] Me dical es 198 [facility] 2020-05-13 2020-05-13 [facility] 1.2.840.114 [id number] Univers 00:00:00 00:00:00 Surgery [facility] 350.1.13.10 it y of Surgical 4.2.7.2.686 [place] as Specialti [phone] Me dical es 198 [facility] 2020-05-09 2020-05-09 Office [facility] 1.2.840.114 [id number] Univers 08:43:33 08:58:33 Visit Kacy Chacon [facility] 350.1.13.10 it y of Surgical 4.2.7.2.686 [place] as Specialti [phone] Me dical es 198 [facility] 2020-05-09 2020-05-09 [facility] [id number] Univers 08:45:00 08:45:00 [facility] 2020-04-30 2020-04-30 Orders Doctor KYLAH 1.2.840.114 [id number] Univers 00:00:00 00:00:00 Only Unassigned, MANUEL 350.1.13.10 ity of [place] [facility] 4.2.7.2.686 Lele as [phone] [address] 2020-03-14 2020-03-14 [facility] 1.2.840.114 [id number] Univers 14:26:02 23:59:00 Encounter Kacy Chacon [facility] 350.1.13.10 ity of Surgical 4.2.7.2.686 [place] as Specialti [phone] Me dical es 809 [facility] 2020-03-14 2020-03-14 Outpatient [facility] [id number] Univers 14:26:02 23:59:00 [facility] 2020-03-14 2020-03-14 Office Kacy Kay [facility] 1.2.840.114 [id number] [facility] 14:16:23 14:31:23 Visit Violet Coffey [facility] 350.1.13.10 ity of Surgical 4.2.7.2.686 [place] as Specialti [phone] Nh dical es [address] [place] 2020-02-19 2020-02-19 (TEL) STLMLC STLMLC [id number] Co mmon 00:00:00 00:00:00 [facility] - [facility] 2020-01-08 2020-01-08 OFFICE STLMLC STLMLC [id number] Co mmon 00:00:00 00:00:00 VISIT Spirit ESTAB PT - [facility] LEVEL 4 [facility] 2019-10-17 2019-10-17 [facility] [id number] Common 08:00:00 08:00:00 t Bone Bone and Spiri t and Joint [facility] - [facility] 2019-07-19 2019-07-19 Out[facility] [id number] Common 15:11:00 15:11:00 t Bone Bone and Spiri t and Joint Joint - [facility] 2019-07-17 2019-07-17 [facility] [id number] Common 08:00:00 08:00:00 t Bone Bone and Spiri t and Joint Joint - [facility] 2019-05-16 2019-05-16 Out[facility] [id number] Common 08:15:00 08:15:00 t Bone Bone and Spiri t and Joint [facility] - [facility] 2019-03-16 2019-03-16 Out[facility] [id number] Common 09:15:00 09:15:00 t Bone Bone and Spiri t and Joint Joint - [facility] 2019-03-09 2019-03-09 Outpatient [facility] [id number] Common 09:15:00 09:15:00 t Bone Bone and Spiri t and Joint [facility] - [facility] 2019-03-02 2019-03-02 Out[facility] [id number] Common 09:15:00 09:15:00 t Bone Bone and Spiri t and Joint [facility] - [facility] 2019-01-20 2019-01-20 Outpatient [facility] [id number] Common 08:55:00 08:55:00 t Bone Bone and Spiri t and Joint Joint - [facility] 2019-01-19 2019-01-19 Outpatient [facility] [id number] Common 09:00:00 09:00:00 t Bone Bone and Spiri t and Joint [facility] - [facility] 2018-06-10 2018-06-10 Out[facility] [id number] Common 09:30:00 09:30:00 t Bone Bone and Spiri t and Joint [facility] - [facility] 2018-06-02 2018-06-02 Outpatient [facility] [id number] Common 09:30:00 09:30:00 t Bone Bone and Spiri t and Joint [facility] - [facility] 2018-05-24 2018-05-24 Outpatient [facility] [id number] Common 09:30:00 09:30:00 t Bone Bone and Spiri t and Joint [facility] - [facility] 2018-05-02 2018-05-02 Outpatient [facility] [id number] Common 08:00:00 08:00:00 t Bone Bone and Spiri t and Joint [facility] - [facility] 2009-03-28 2009-03-28 Outpatient [facility] [id number] Univers 00:00:00 11:30:00 9 [facility] 2009-02-07 2009-02-07 Outpatient [facility] [id number] Univers 00:00:00 14:30:00 4 [facility] Results Test Description Test Time Test Comments Results Result Comments Source BASIC METABOLIC PANEL (NA, K, CL, CO2, GLUCOSE, BUN, 2022-12 -28 20:08:05 CREATININE, [place]) Test Item Value Reference Range Interpretation Comme nts NA (test code = 0756897075) 136 mmol/L 135-145 K (test code = 2101447904) 4.7 mmol/L 3.5-5.0 CL (test code = 2470594620) 102 mmol/L 98-108 CO2 TOTAL (test code = 27 mmol/L 23-31 2439685660) AGAP (test code = 1594815886) 2-16 BUN (test code = 2187441771) 14 mg/dL 7-23 GLUCOSE (test code = 5090743954) 92 mg/dL 70-110 CREATININE (test code = 0.68 mg/dL 0.50-1.04 6712177190) CALCIUM (test code = 1282783575) 9.3 mg/dL 8.6-10.6 eGFR (test code = 7173210108) mL/min/1.73m2 ZAFAR (test code = ZAFAR) Association of Glomerular Filtration Rate (GFR) and Staging of Kidney Disease* + +--------- + ----+| GFR (mL/min/1.73 m2) ?| With Kidney Damage ?| ?Without Kidney Damage+ +--- + +| ?>90 ?| ?Stage one ?| ? Normal ?+ +-------- + -----+| ?60-89 ?| ?Stage two ?| ? Decreased GFR ? + +--------- + ----+| ?30-59 ?| ?Stage three ?| ? Stage three ? + +--------- + ----+| ?15-29 ?| ?Stage four ? | ? Stage four ?+ +-------- + -----+| ?<15 (or dialysis) ? ?| ?Stage five ? | ? Stage five ?+ +-------- + -----+ *Each stage assumes the associated GFR level has been in effect for at least three months. ?Stages 1 to 5, with or without kidney disease, indicate chronic kidney disease. Notes: Determination of stages one and two (with eGFR >59mL/min/1.73 m2) requires estimation of kidney damage for at least three months as defined by structural or functional abnormalities of the kidney, manifested by either:Pathological abnormalities or Markers of kidney damage (including abnormalities in the composition of the blood or urine or abnormalities in imaging tests). [facility] WITH [id number] 19:47:23 Test Item Value Reference Range Interpretation Comments WBC (test code = See_Comment [Automated 6690-2) message] The sy stem which generated this result transmitted reference range : 4.30 - 11.10 10*3/?L. The reference range was not used to interpret this result as normal/abnormal . RBC (test code = See_Comment [Automated 789-8) message] The sy stem which generated this result transmitted reference range : 3.93 - 5.25 10*6/?L. The reference range was not used to interpret this result as normal/abnormal . HGB (test code = 14.4 g/dL 11.6-15.0 718-7) HCT (test code = 43.1 % 35.7-45.2 4544-3) MCV (test code = 92.1 fL 80.6-95.5 787-2) MCH (test code = 30.8 pg 25.9-32.8 785-6) MCHC (test code = 33.4 g/dL 31.6-35.1 786-4) RDW-SD (test code = 43.0 fL 39.0-49.9 09423-2) RDW-CV (test code = 12.6 % 12.0-15.5 788-0) PLT (test code = See_Comment [Automated 777-3) message] The sy stem which generated this result transmitted reference range : 166 - 358 10*3/ ?L. The reference r filiberto was not used to interpret this result as normal/abnormal . MPV (test code = 9.6 fL 9.5-12.9 26082-7) NRBC/100 WBC (test See_Comment [Automat ed code = [id number]) message] The system which generated this result transmitted reference range : 0.0 - 10.0 /100 WBCs. The refer ence range was not u sed to interpret th is result as normal/abnormal . NRBC x10^3 (test code See_Comment [Auto mated = [id number]) message] The s ystem which generated this result transmitted reference range : 10*3/?L. The reference range was not used to interpret this result as normal/abnormal . GRAN MAT (NEUT) % 55.3 % (test code = 770-8) IMM GRAN % (test code 0.30 % = [id number]) LYMPH % (test code = 33.7 % 736-9) MONO % (test code = 6.1 % 5905-5) EOS % (test code = 3.0 % 713-8) BASO % (test code = 1.6 % 706-2) GRAN MAT x10^3(ANC) 3.16 10*3/uL 1.88-7.09 (test code = 7046857222) IMM GRAN x10^3 (test 0.00-0.06 code = 3702747713) LYMPH x10^3 (test code 1.93 10*3/uL 1.32-3.29 = 731-0) MONO x10^3 (test code 0.35 10*3/uL 0.33-0.92 = 742-7) EOS x10^3 (test code = 0.17 10*3/uL 0.03-0.39 711-2) BASO x10^3 (test code 0.09 10*3/uL 0.01-0.07 H = 704-7) Lab Interpretation Abnormal (test code = 96272-5) [facility] [id number] 12:00:00 Test Item Value Reference Range Interpretation Comments POCT Glu (age>30days) (test code = 95 mg/dL 70-110 3342) [facility] [id number] 12:00:00 Test Item Value Reference Range Interpretation Comments POCT Glu (age>30days) (test code = 95 mg/dL 70-110 3342) [facility] [id number] 18:15:26 Test Item Value Reference Range Interpretation Comments POCT Creatinine (test code = 0.7 mg/dL 0.5-1.3 [id number]) Lab Interpretation (test code = Normal 06064-8) [facility]"
[2022-12-25] MEDS ORDERED: HYDROCODONE/APAP 5/325 MG TAB ONE ×2 (09:18→09:33)
--- NOTE | 2022-12-25 09:59 | RAD REPORT ---
EXAM DESCRIPTION: CT - Knee Right Wo Cont - 12/25/2022 9:23 am CLINICAL HISTORY: injury, swelling, prior replacement Pain, injury, swelling COMPARISON: No comparisons FINDINGS: A total knee arthroplasty is noted. Hardware is in expected position and alignment. There is no evidence of hardware complication. No fracture or subluxation is appreciated. No soft tissue mass or hematoma. No significant joint flui d. IMPRESSION: No acute abnormality is detected. All CT scans are performed using dose optimization technique as appropriate and may include automated exposure control or mA/KV adjustment according to patient size.
--- NOTE | 2022-12-25 10:12 | ER ---
Nurse's Notes [facility] Name: Tamara Lazar Age: 62 yrs Sex: Female : 1960 Arrival Date: 12/25/2022 Time: 08:12 Bed 20 Private MD: Diagnosis: Sprain of unspecified site of right knee, initial encounter Presentation: 12/25 08:30 Chief complaint: Right knee pain after fall from standing yesterday. Hx of right knee hb replacement. Coronavirus screen: At this time, the client does not indicate any symptoms associated with coronavirus-19. Ebola Screen: No symptoms or risks identified at this time. Initial Sepsis Screen: Does the patient meet any 2 criteria? No. Patient's initial sepsis screen is negative. Does the patient have a suspected source of infection? No. Patient's initial sepsis screen is negative. Risk Assessment: Do you want to hurt yourself or someone else? Patient reports no desire to harm self or others. Onset of symptoms was December 24, 2022. 08:30 Method Of Arrival: Ambulatory hb 08:30 Acuity: LATISHA 4 hb Historical: - Allergies: 08:32 No Known Drug Allergies; hb - PMHx: 08:32 Anxiety; CHF; COPD; Depression; Diabetes - NIDDM; Hypertension; Sleep Apnea; hb - Immunization history:: Adult Immunizations up to date. - Social history:: Smoking status: Patient denies any tobacco usage or history of. Screenin:05 [facility] ED Fall Risk Assessment (Adult) Score/Fall Risk Level 3 or more points = High nj1 Risk Oriented to surroundings, Maintained a safe environment, Hourly rounding (assess needs \T\ fall precautionary measures) done, Remained w/in arm's length of patient and in sight while toileting, Remained with patient while ambulating, Utilized family, sitter, or virtual biostatistician as indicated. Abuse screen: Denies threats or abuse. Denies injuries from another. Nutritional screening: No deficits noted. Tuberculosis screening: No symptoms or risk factors identified. Assessment: 09:05 General: Appears in no apparent distress. uncomfortable, Behavior is calm, cooperative, nj1 appropriate for age. 09:05 Pain: Complains of pain in right knee Pain currently is 10 out of 10 on a pain scale. nj1 Pain began 1 day ago. Pain: Aggravated by repositioning, weight bearing. Neuro: Level of Consciousness is awake, alert, obeys commands, Oriented to person, place, time, situation. Cardiovascular: Patient's skin is warm and dry. Respiratory: Airway is patent Respiratory effort is even, unlabored. Musculoskeletal: Reports pain in right knee Pain is 10 out of 10 on a pain scale. 10:08 Reassessment: Patient appears in no apparent distress at this time. Patient and/or nj1 family updated on plan of care and expected duration. Pain level reassessed. Patient is alert, oriented x 3, equal unlabored respirations, skin warm/dry/pink. Vital Signs: 08:30 BP 131 / 68; Pulse 73; Resp 16; Temp 98.1(TE); Pulse Ox 96% on R/A; Weight 108.86 kg; hb Height 5 ft. 2 in. ; Pain 10/10; 09:30 BP 141 / 82; Pulse 65; Resp 17; Pulse Ox 95% ; nj1 10:08 Pain 8/10; nj1 08:30 Body Mass Index 43.90 (108.86 kg, 157.48 cm) hb 08:30 Pain Scale: Adult hb 10:08 Pain Scale: Adult nj ED Course: 08:16 Patient arrived in ED. ts1 08:17 Fay Stack PA-C is PHCP. sb4 08:17 Marvin Marie MD is Attending Physician. sb4 08:31 Triage completed. hb 08:32 Arm band placed on. hb 09:02 Mariana Flores, RN is Primary Nurse. nj1 09:05 Patient has correct armband on for positive identification. Bed in low position. Call ks1 light in reach. 09:05 Provided Education on: call light, fall precautions. nj1 09:25 Knee Right Wo Cont In Process Unspecified. EDMS 10:20 No provider procedures requiring assistance completed. Patient did not have IV access nj1 during this emergency room visit. Administered Medications: 09:08 Drug: HYDROcodone-acetaminophen PO 5 mg-325 mg 2 tabs PO once Route: PO; nj1 10:08 Follow up: Pain 8/10 Adult; Response: No adverse reaction; Pain is decreased nj1 Medication: 10:20 VIS not applicable for this client. nj1 Outcome: 10:12 Discharge ordered by . sb4 10:20 Discharged to home via wheelchair, with friend, nj1 10:20 Condition: stable 10:20 Discharge instructions given to patient, Instructed on discharge instructions, follow up and referral plans. medication usage, safety practices, Demonstrated understanding of instructions, follow-up care, Prescriptions given X 1, 10:27 Patient left the ED. nj1 Signatures: Dispatcher [employer] EDMS Dionna Frost RN RN hb Brown, Sophia, PA-C PA-C sb4 Mariana Flores RN RN nj1 Randi James PAS PAS ts1
--- NOTE | 2022-12-25 10:12 | EDPHYS ---
Physician Documentation [facility] Name: Tamara Lazar Age: 62 yrs Sex: Female : 1960 Arrival Date: 12/25/2022 Time: 08:12 Bed 20 Private MD: ED Physician Marvin Marie HPI: 12/25 08:39 This 62 yrs old Female presents to ER via Ambulatory with complaints of Knee sb4 Pain. 08:39 The patient presents with decreased range of motion, pain, that is acute, swelling, sb4 tenderness. The complaints affect the right knee. Context: resulted from an unknown cause, the patient can partially bear weight, uses a walker. Onset: The symptoms/episode began/occurred yesterday. Modifying factors: The symptoms are alleviated by remaining still, the symptoms are aggravated by movement, weight bearing, bending knee. Associated signs and symptoms: Pertinent negatives fever, numbness, tingling, warmth. Treatment prior to arrival includes: icing the affected extremity. Historical: - Allergies: 08:32 No Known Drug Allergies; hb - PMHx: 08:32 Anxiety; CHF; COPD; Depression; Diabetes - NIDDM; Hypertension; Sleep Apnea; hb - Immunization history:: Adult Immunizations up to date. - Social history:: Smoking status: Patient denies any tobacco usage or history of. ROS: 08:41 Constitutional: Negative for fever, chills, and weight loss, sb4 08:41 MS/extremity: Positive for injury or acute deformity, decreased range of motion, pain, swelling, of the right knee, 08:41 All other systems are negative, sb4 Exam: 08:41 Constitutional: This is a well developed, well nourished patient who is awake, alert, sb4 and in no acute distress. Head/Face: Normocephalic, atraumatic. Eyes: Extra-ocular motions intact. Periorbital areas with no swelling, redness, or edema. ENT: Mucous membranes moist. Skin: Warm, dry with normal turgor. Normal color with no rashes, no lesions, and no evidence of cellulitis. Neuro: Awake and alert, GCS 15, oriented to person, place, time, and situation. Motor strength 5/5 in all extremities. Sensory grossly intact. 08:41 Musculoskeletal/extremity: ROM: limited active range of motion due to pain, limited passive range of motion due to pain, Circulation is intact in all extremities. Pulses: are normal with no appreciated deficits, Perfusion: the patient is normally perfused throughout, Perfusion: the extremity is normally perfused throughout, Calf tenderness, is absent, Edema, is not appreciated, Sensation intact. Joints: the right knee displays painful range of motion, swelling, tenderness, Weight bearing: can bear weight with assistance only, uses walker, Vital Signs: 08:30 BP 131 / 68; Pulse 73; Resp 16; Temp 98.1(TE); Pulse Ox 96% on R/A; Weight 108.86 kg; hb Height 5 ft. 2 in. ; Pain 10/10; 09:30 BP 141 / 82; Pulse 65; Resp 17; Pulse Ox 95% ; nj1 10:08 Pain 8/10; nj1 08:30 Body Mass Index 43.90 (108.86 kg, 157.48 cm) hb 08:30 Pain Scale: Adult hb 10:08 Pain Scale: Adult nj1 MDM: 08:24 Patient medically screened. sb4 08:41 Differential diagnosis: dislocation, open fracture, closed fracture, contusion. sb4 10:11 Data reviewed: vital signs, nurses notes, radiologic studies, and as a result, I will sb4 discharge patient. Counseling: I had a detailed discussion with the patient and/or guardian regarding the historical points, exam findings, and any diagnostic results supporting the discharge/admit diagnosis, the presence of at least one elevated blood pressure reading (>120/80) during this emergency department visit, radiology results, the need for outpatient follow up, a orthopedic surgeon, to return to the emergency department if symptoms worsen or persist or if there are any questions or concerns that arise at home. 12/25 08:40 Order name: Knee Right Wo Cont; Complete Time: 10:00 EDMS Administered Medications: 09:08 Drug: HYDROcodone-acetaminophen PO 5 mg-325 mg 2 tabs PO once Route: PO; nj1 10:08 Follow up: Pain 10/08 Adult; Response: No adverse reaction; Pain is decreased nj1 Disposition: 10:38 Co-signature as Attending Physician, Marvin Marie MD I reviewed the patient's care rt provided by the Advanced Practice Provider and agree with the diagnosis and treatment plan. Disposition Summary: 12/25/22 10:12 Discharge Ordered Notes: Location: Home sb4 Problem: new sb4 Symptoms: have improved sb4 Condition: Stable sb4 Diagnosis - Sprain of unspecified site of right knee, initial encounter sb4 Followup: sb4 - With: Private Physician - When: As needed - Reason: Recheck today's complaints, Re-evaluation by your physician Discharge Instructions: - Discharge Summary Sheet sb4 - Knee Sprain, Adult, [id number] sb4 Forms: - Medication Reconciliation Form sb4 - Thank You Letter sb4 - Antibiotic Education sb4 - Prescription Opioid Use sb4 - Patient Portal Instructions sb4 - Leadership Thank You Letter sb4 Prescriptions: - acetaminophen-codeine 300-30 mg Oral tablet - take 1 tablet ORAL route every 6 hours as needed for pain; 12 tablet; Refills: sb4 0, Product Selection Permitted Signatures: Dispatcher [employer] EDDionna Roper, RN RN Fay Rodarte, ADRIÁN SAMPSON sb4 Marvin Marie MD MD rt Mariana Flores RN RN nj1
[2022-12-25 10:40] VITALS: TEMP 98.1
[2022-12-25 10:42] VITALS: BP 141/82; O2SAT 95
== END 2022-12-25 10:27 | disposition home or self-care (01) ==
LOC: ER 08:12
DX: S83.91XA Sprain of unspecified site of right knee, initial encounter (principal)
CPT/HCPCS: 73700; 99283

== ENCOUNTER 2023-08-12 11:30 | Day surgery (SDC) | payer OTHER ==
[2023-08-10 09:49] LABS: Absolute Eosinophils 0.3 K/uL (0-0.5); Absolute Lymphocytes (CBC) 1.8 K/uL (0.7-4.9); Absolute Monocytes 0.3 K/uL (0.1-1.3); Basophils % 0.6 % (0-1.3); Eosinophils % 4.7 % (0-4.4); Hematocrit 41.9 % (36.0-45.0); Hemoglobin 14.2 g/dL (12.0-15.0); Lymphocytes % 33.8 % (15.3-44.8); MCH 32.5 pg (27.0-35.0); MCV 95.7 fL (80-100); MPV 7.7 fL (7.6-11.3); Neutrophils % 54.9 % (41.7-73.7); Nucleated Red Blood Cells % 0.1 % (0-0); Platelets 243 thou/uL (152-406); RBC Red Blood Cell Count 4.38 M/uL (3.86-4.86); Red Cell Distribution Width 14.4 % (12.1-15.2)
--- NOTE | 2023-08-10 10:09 | RAD REPORT ---
EXAM DESCRIPTION: Doni Barakat And Smooth (2 Views)08/10/2023 9:52 am CLINICAL HISTORY: Preop for vascular stent placement. COPD COMPARISON: 2022 FINDINGS: The lungs appear clear of acute infiltrate. The heart is normal size IMPRESSION: No acute abnormalities displayed
[2023-08-10 10:13] LABS: Anion Gap 5.5 mEq/L (5.0-15.0); Potassium 4.5 mEq/L (3.5-5.1)
[2023-08-10 10:15] LABS: PT Prothrombin Time 10.8 SECONDS (9.5-12.5); PTT, Activated Partial Thromb 37.1 SECONDS (24.3-36.9); Protime INR 0.98
--- NOTE | 2023-08-10 15:05 | EKG ---
Test Date: 2023-08-10 Test Time: 09:38:45 Warehouse Assistant: NARDA MEASUREMENT RESULTS: Intervals: Rate: 54 FL: 164 QRSD: 82 QT: 424 QTc: 402 [place]: P: 44 FL: 164 QRS: 33 T: 44 INTERPRETIVE STATEMENTS: Sinus bradycardia with sinus arrhythmia Otherwise normal ECG Compared to ECG 09/20/2018 11:38:17 Sinus rhythm no longer present Ventricular premature complex(es) no longer present Myocardial infarct finding no longer present Electronically Signed On 08-10-23 15:04:47 CDT by Florentin Phan
[2023-08-12] MEDS ORDERED: NA CHLORIDE 0.9% 500 ML ONE (12:42)
[2023-08-12 13:00] VITALS: TEMP 97.6
[2023-08-12] MEDS ORDERED: HEPA 1000U/500MLS 1,000 UNIT/500 ML BAG IV ONE (13:36)
[2023-08-12] MEDS ORDERED: LIDOCAINE 1% 20 ML MDV ONE (13:36)
[2023-08-12] MEDS ORDERED: VERAPAMIL HCL 10 MG/4 ML VIAL IV ONE (13:36)
[2023-08-12] MEDS ORDERED: FENTANYL CITR 100 MCG/2 ML ONE (13:36)
[2023-08-12] MEDS ORDERED: TICAGRELOR 90 MG TABLET PO ONE (13:37)
[2023-08-12] MEDS ORDERED: ATROPINE SULF 1 MG/10 ML SYR IV ONE (13:37)
[2023-08-12] MEDS ORDERED: HEPARIN 5000 UNIT/ML 1 ML VIAL ONE (13:37)
[2023-08-12] MEDS ORDERED: MIDAZOLAM HCL 2 MG/2 ML INJ ONE (13:37)
[2023-08-12] MEDS ORDERED: HEPARIN 10,000 UNIT/10 ML VIAL IV ONE (13:37)
[2023-08-12] MEDS ORDERED: NALOXONE 0.4 MG/ML VIAL ONE (13:38)
[2023-08-12] MEDS ORDERED: CLOPIDOGREL 75 MG TABLET ONE (13:38)
[2023-08-12] MEDS ORDERED: ASPIRIN 325 MG TAB ONE (13:38)
[2023-08-12] MEDS ORDERED: FLUMAZENIL 0.1 MG/ML (5 mL VIAL) IV ONE (13:38)
[2023-08-12 16:25] VITALS: BP 124/60; O2SAT 97
--- NOTE | 2023-08-13 00:53 | OP ---
Date of Procedure: 08/12/2023 Surgeon: ALLYSSA ALICEA Procedures Performed: 1.Selective coronary angiogram. 2.Left heart catheterization. Indication: Chest pain with abnormal stress test suggestive of unstable angina. Access: Right radial artery, 6-Chinese, closed with TR band. Complications: None. Bleeding: Less than 20 mL. Anesthesia: Total sedation time was 45 minutes, used fentanyl and Versed. Description Of Procedure: After risks, benefits, and alternatives were explained, the patient agreed to procedure and signed informed consent. The patient was brought into cardiac catheterization [facility], prepped and draped in sterile fashion. Then, I accessed right radial artery using pediatric micropuncture kit, placed a 6-Chinese slender sheath and took 5-Chinese Mcdermitt 4 catheter for the aortic root across the aortic valve, measured the LVEDP. Pullback did not record any gradient. I engaged the RCA, took standard views and then the left main, took standard views and then removed the cathete r and the sheath, and placed TR band with good hemostasis. Findings: 1.Left main is normal. 2.LAD proximal 30% to 40%, mid 40% to 50% stenosis, diffuse and mid to distal 20% to 30% stenosis. Diagonal branches are small with luminal irregularities. 3.Left circumflex, small with no luminal irregularities. 4.RCA, moderate size, proximal 30%, proximal to mid to distal luminal irregularities, and the PDA be comes smaller vessel. 5.LVEDP elevated at 20 mmHg. Conclusions: 1.Moderate coronary artery disease with small vessels. 2.Elevated left ventricular end-diastolic pressure. Recommendations: Medical management and cardiac risk factor modification. SR/MODL Voice ID: [id number] Report ID: [id number]
== END 2023-08-12 16:12 | disposition home or self-care (01) ==
LOC: PRE 11:30 → CCL 11:30
PROVIDERS: ATTEND Internal Medicine
DX: I25.110 Atherosclerotic heart disease of native coronary artery with unstable angina pectoris (principal); I73.9 Peripheral vascular disease, unspecified; I10 Essential (primary) hypertension; E78.5 Hyperlipidemia, unspecified; E11.9 Type 2 diabetes mellitus without complications; Z87.891 Personal history of nicotine dependence; Z79.84 Long term (current) use of oral hypoglycemic drugs; Z79.899 Other long term (current) drug therapy; Z98.84 Bariatric surgery status
CPT/HCPCS: 93005; 85025; 80048; 36415; 83721; 85610; 82947 ×2; 85730; 71046; 93458; 76937; C1893; Q9966; J1644; J2001; J7040; J0461; J2250; J2310; J3010